=== PATIENT | male | born 1945 | race Caucasian/White ===

== ENCOUNTER → 2018-12-31 | Day surgery (SDC) | payer MEDICARE, BC ==
[2018-12-24 10:18] LABS: BASOPHILS % 0.5 % (0.0-1.0); EOSINOPHILS # (AUTO) 0.2 (0.0-0.4); HEMATOCRIT 38.6 % (38.2-49.6); HEMOGLOBIN 12.5 g/dL (14.0-18.0); LYMPHOCYTES # (AUTO) 0.6 (1.0-3.2); LYMPHOCYTES % 14.9 % (18.0-39.1); MEAN CORPUSCULAR HEMOGLOBIN 31.9 pg (28-32); MEAN CORPUSCULAR HGB CONC 32.4 g/dL (31-35); MEAN CORPUSCULAR VOLUME 98.5 fL (81-99); MONOCYTES # (AUTO) 0.5 (0.2-0.8); MONOCYTES % 11.6 % (4.4-11.3); NEUTROPHILS # (AUTO) 2.8 (2.1-6.9); NEUTROPHILS % 68.5 % (38.7-80.0); PLATELET COUNT 118 x10e3/uL (140-360); RED BLOOD COUNT 3.92 x10e6/uL (4.3-5.7); RED CELL DISTRIBUTION WIDTH 13.8 % (11.7-14.4)
--- NOTE | 2018-12-24 11:05 | Diagnostic Imaging Report ---
EXAMINATION: CHEST 2 VIEWS INDICATION: Pre-operative COMPARISON: None FINDINGS: LINES/TUBES:None LUNGS:The lungs are well-inflated. No focal consolidation or pulmonary edema. PLEURA:No pleural effusion or pneumothorax. MEDIASTINUM:The cardiomediastinal silhouette appears normal in size and shape. BONES/SOFT TISSUES:No acute osseous injury. ABDOMEN:No free air under the diaphragm. IMPRESSION: No focal pneumonia or pulmonary edema. Signed by: Cinthya Murphy MD on 12/24/2018 11:02 AM
[~2018-12-31] MED LIST: ALIGN4 MG; AMLODIPINE BESYL5 MG PO; ASPIRIN81 MG; BYSTOLIC10 MG PO; CEFTRIAXONE SOD 1 GM/NS 50 ML 50 ML IV ONE; CENTRUM SILVER1 EAC4; CLOPIDOGREL75 MG PO; DICYCLOMINE HCL20 MG PO; EPHEDRINE SULFATE INJ 50 MG/10 ML SYR ONE; FENTANYL CITRATE/PF 100MCG/2 ML INJ ONE; HUMIRA20 MG/0.4; LEFLUNOMIDE; LIDOCAINE HCL 2% LOCAL INJ 5 ML SDV VIAL INJ ONE; LOSARTAN POTAS100 MG PO; OMEPRAZOLE40 MG; PROPOFOL IV EMULSION 10 MG/ML 20 ML VIAL ONE; SEVOFLURANE INHAL SOLN 250 ML PEN BTL ONE; VITAMIN C500 MG; VITAMIN D3400 UNIT
--- OUTSIDE RECORDS SUMMARY | 2018-12-31 05:15 | XMS REPORT ---
Author Author [facility] Address Unknown Phone Unavailable Care Team Providers Care [employer] Technical Assistant Name Role Phone NIMO SCANLON Unavailable Unavailable Payers Payer Name Policy Type Policy Number Effective Date Expiration Date Problems This patient has no known problems. Allergies, Adverse Reactions, Alerts Allergy Name Allergy Type Status Severity Reaction(s) Onset Date Inactive Date Treating Clinician Comments No Known Allergies DA Active U 2016-12-22 00:00:00 Medications This patient has no known medications. Results Test Description Test Time Test Comments Text Results Atomic Results Result Comments CHEST 2 VIEWS 2018-12-24 11:01:00 [place] [address] Patient Name: NORIS MAGALLANES MR #: [id number] : 1945 Age/Sex: 73/M Req #: [id number] Adm Physician: Ordered by: NIMO SCANLON MD Report #: [id number] Location: OR Room/Bed: Procedure: [id number] DX/CHEST 2 VIEWS Exam Date: Exam Time: REPORT STATUS: Signed EXAMINATION: CHEST 2 VIEWS INDICATION: Pre-operative COMPARISON: None FINDINGS: LINES/TUBES:None LUNGS:The lungs are well- inflated. No focal consolidation or pulmonary edema. PLEURA:No pleural effusion or pneumothorax. MEDIASTINUM:The cardiomediastinal silhouette appears normal in size and shape. BONES/SOFT TISSUES:No acute osseous injury. ABDOMEN:No free air under the diaphragm. IMPRESSION: No focal pneumonia or pulmonary edema. Signed by: Landon Mercer MD on 12/24/2018 11:02 AM Dictated By: LANDON MERCER MD 01 Transcribed By: LG on 12/24/181101 COPY TO: NIMO SCANLON MD CBC W/AUTO DIFF 2018-10-07 08:35:00 WHITE BLOOD CELL (test code=WBC) 5.79 x10 3/uL 4.5-11.0 RED BLOOD CELL (test code=RBC) 4.25 x10 6/uL 4.00-5.60 HEMOGLOBIN (test code=HGB) 13.4 g/dL 12.5-16.9 HEMATOCRIT (test code=HCT) 39.7 % 37.5-50.7 MEAN CELL VOLUME (test code=MCV) 93.4 fL 81.0-99.0 MEAN CELL HGB (test code=MCH) 31.5 pg 27.0-33.0 MEAN CELL HGB CONCETRATION (test code=MCHC) 33.8 g/dL 33.0-37.0 RED CELL DISTRIBUTION WIDTH CV (test code=RDW) 13.7 % 11.5-14.5 RED CELL DISTRIBUTION WIDTH SD (test code=RDW-SD) 46.9 fL 37.0-54.0 PLATELET COUNT (test code=PLT) 115 x10 3/uL 150-400 MEAN PLATELET VOLUME (test code=MPV) 11.3 fL 7.0-9.0 NEUTROPHIL % (test code=NT%) 80.8 % 56.0-77.0 IMMATURE GRANULOCYTE % (test code=IG%) 0.2 % 0.0-2.0 LYMPHOCYTE % (test code=LY%) 9.8 % 14.0-32.0 MONOCYTE % (test code=MO%) 8.5 % 4.8-9.0 EOSINOPHIL % (test code=EO%) 0.5 % 0.3-3.7 BASOPHIL % (test code=BA%) 0.2 % 0.0-2.0 NUCLEATED RBC % (test code=NRBC%) 0.0 % 0-0 NEUTROPHIL # (test code=NT#) 4.68 x10 3/uL 2.0-7.6 IMMATURE GRANULOCYTE # (test code=IG#) 0.01 x10 3/uL 0.00-0.03 LYMPHOCYTE # (test code=LY#) 0.57 x10 3/uL 1.0-3.8 MONOCYTE # (test code=MO#) 0.49 x10 3/uL 0.1-0.8 EOSINOPHIL # (test code=EO#) 0.03 x10 3/uL 0.0-0.2 BASOPHIL # (test code=BA#) 0.01 x10 3/uL 0.0-0.2 NUCLEATED RBC # (test code=NRBC#) 0.00 x10 3/uL 0.0-0.1 MANUAL DIFF REQUIRED (test code=MDIFF) NO BASIC METABOLIC [id number] 08:04:00* Test Item Value Reference Range Comments SODIUM (test code=NA) 142 mEq/L 134-147 POTASSIUM (test code=K) 3.5 mEq/L 3.4-5.0 CHLORIDE (test code=CL) 109 mEq/L 100-108 CARBON DIOXIDE (test code=CO2) 24 mEq/L 21-33 ANION GAP (test code=GAP) 13 0-20 GLUCOSE (test code=GLU) 128 mg/dL 70-110 BLOOD UREA NITROGEN (test code=BUN) 19 mg/dL 7-18 GLOMERULAR FILTRATION RATE (test code=GFR) 82.7 70-80 Units of measure=ml/min/1.73 m2 CREATININE (test code=CREAT) 0.9 mg/dL 0.6-1.3 CALCIUM (test code=CA) 8.8 mg/dL 8.0-10.5 SED RATE [id number] 08:28:00* Test Item Value Reference Range Comments SED RATE WESTERGREN (test code=SEDW) 4 mm/hr 0-15 LIPID PROFILE (CORONARY RISK)2018-10-06 08:20:00* Test Item Value Reference Range Comments TRIGLYCERIDES (test code=TRIG) 146 mg/dL 40-150 CHOLESTEROL (test code=CHOL) 174 mg/dL <200 CHOLESTEROL/HDL RATIO (test code=CHOLHDL) 3.78 RATIO 3.43-4.97 RISK ASSOCIATED WITH CHOL/HDL RATIOS: RISK MALE FEMALE1/2 AVERAGE 3.43 3.27AVERAGE 4.97 4.442X AVERAGE 9.55 7.053X AVERAGE 23.39 11.04 NOTE THAT THE REFERENCE VALUE IS RELATEDTO RISK LEVELS RECOMMENDED BY THE NATL.HEART, LUNG, AND BLOOD INST. HDL CHOLESTEROL (test code=HDL) 46.0 mg/dL 32-72 LIPOPROTEIN LDL (test code=LDL) 114 mg/dL 0-100 <100 [id number] NEAR OPTIMAL/ABOVE [id number] HIGH>BM=348 VERY HIGH*Guidelines provided by the National Cholesterol EducationProgram Adult Treatment Panel III T4 [id number] 08:20:00* Test Item Value Reference Range Comments T4 FREE (test code=T4F) 1.0 ng/dL 0.77-1.61 THYROID STIMULATING [id number] 08:20:00* Test Item Value Reference Range Comments THYROID STIMULATING HORMONE (test code=TSH) 1.90 0.42-5.47 Results in bg-International Units/mL [id number] 08:20:00* Test Item Value Reference Range Comments TROPONIN-I (test code=TROPI) < 0.015 ng/mL 0.000-0.045 Negative: <=0.045 Positive: >=0.046 Correlation with serial results, other cardiac markers andclinical findings is necessary to determine the clinicalsignificance of this result. Results using different methodologies should not be comparedto one another as quantitative results may vary by method. [id number] 01:13:00* Test Item Value Reference Range Comments TROPONIN-I (test code=TROPI) < 0.015 ng/mL 0.000-0.045 Negative: <=0.045 Positive: >=0.046 Correlation with serial results, other cardiac markers andclinical findings is necessary to determine the clinicalsignificance of this result. Results using different methodologies should not be comparedto one another as quantitative results may vary by method. COMMENTS: 3 troponins total (including troponin done in ED)- CT ANGIO CHEST 2018-10-05 21:28:00 Name: NORIS MAGALLANES [facility] [place] : 1945 Age/S: 73 / M [address] [place] [address] Unit #: [id number] Loc: [place] [address] Phys: Robby Luong MD Acct: [id number] Dis Date: Status: REG ER PHONE #: [phone] Exam Date: 10/05/20182105 FAX #: [phone] Reason: sharp ripping chest pain EXAMS: CPT CODE: [id number] CT ANGIO CHEST 22473 Clinical Indication: sharp ripping chest pain; Comparison: CTA chest April 13, 2018 TECHNIQUE: Multi-detector CTA imaging of the chest is performed. Coronal and sagittal as well as 3D Maximum Intensity Projected MIP reconstructions were obtained. 100 cc IV Isovue contrast used. CT DLP 420mg-cm. FINDINGS: CT: Three 4 mm nodule in the right middle lobe, left lower lobe lobe are visualized, unchanged since the last exam. There are no interstitial lung disease, pleural effusions or pneumothorax. The central airway is normal. There is no mediastinal lymphadenopathy. Thoracic osseous structures are unremarkable. The upper abdominal images demonstrate a small hiatal hernia and bilateral nonobstructive nephrolithiasis. CTA: The heart is within normal limits for size without pericardial effusion. A coronary stent is present. Pulmonary arteries are unremarkable without evidence for proximal segmental or larger pulmonary embolus. The thoracic aorta is within normal limits without aneurysm or dissection. The great vessels and superior vena cava are normal. IMPRESSION: 1. No evidence for pulmonary embolus 2. No acute CT findings. 3. Stable bilateral pulmonary nodules 4. A small hiatal hernia. 5. Bilateral nonobstructive nephrolithiasis. DONNY: DIANE PAGE 1 Signed Report (CONTINUED) Name: NORIS MAGALLANES [facility] [place] : 1945 Age/S: 73 / M [address] [place] [address] Unit #: [id number] Loc: [place] [address] Phys: Robby Luong MD Acct: [id number] Dis Date: Status: REG ER PHONE #: [phone] Exam Date: 10/05/20182105 FAX #: [phone] Reason: sharp ripping chest pain EXAMS: CPT CODE: [id number] CT ANGIO CHEST 85132 < Continued> at 8 Reported and signed by: You Gould M.D. CC: Robby Luong MD Technologist:Terri Willis, RT(R)(CT) CTDI: DLP: Trnscb Date/Time: 10/05/2018 (2127) t.SDR.LNV Orig Print D/T: S: 10/05/2018 (2130) PAGE 2 Signed Report PROTHROMBIN [id number] 20:10:00* Test Item Value Reference Range Comments PROTHROMBIN TIME PATIENT (test code=PTP) 11.8 SECONDS 9.3-12.9 INTERNATIONAL NORMAL RATIO (test code=INR) 1.0 0.8-1.2 TARGET INR BY INDICATION Indication INR1. Prophylaxis of venous thrombosis 2.0 - 3.0 (orthopedic surgery), Prophylaxis of venous thrombosis (other than high-risk surgery), Treatment of Deep Vein Thrombosis/Pulmonary Embolism, Prevention of systemic embolism - Tissue heart valves, Acute Myocardial Infarction (to prevent systemic embolism), Valvular heart disease, Atrial Fibrillation, Bileaflet mechanical valve in aortic position.2. Mechanical prosthetic valves (high risk), 2.5 - 3.5 Presence of Lupus Anticoagulant or Antiphospholipid Antibodies, Prevention of systemic embolism - Acute Myocardial Infarction (to prevent recurrent infarct). THROMBOPLASTIN TIME [id number] 20:10:00* Test Item Value Reference Range Comments THROMBOPLASTIN TIME PARTIAL (test code=PTT) 31.9 Seconds 25.0-39.5 Therapeutic Range: 50.4 - 88.3 Seconds Effective 06/11/2018 [id number] 20:10:00* Test Item Value Reference Range Comments D-DIMER (test code=DDIMER) 482 ng/mlFEU <=500 THROMBOSIS AND/OR PULMONARY EMBOLISM AND THE CLINICAL CUT- OFF VALUE FOR EXCLUSION (500 ng/mL FEU) OF THESE CONDITIONSIS VALIDATED BY THE MULTI CRAFT MAINTENANCE TECHNICIAN OF THE METHOD. A NEGATIVE D-DIMER RESULT WHEN COMBINED WITH A CLINICALASSESSMENT OF LOW PRETEST PROBABILITY HAS BEEN SHOWN TO HAVEA HIGH NEGATIVE PREDICTIVE VALUE OF DVT OR PE. D-DIMER VALUES >500 ng/mL FEU ARE NOT DIAGNOSTIC FOR DVT, PEor DIC WITHOUT OTHER CONFIRMATORY TESTS AND APPROPRIATECLINICAL EUALUATIONS. COMPREHENSIVE METABOLIC [id number] 20:09:00* Test Item Value Reference Range Comments SODIUM (test code=NA) 146 mEq/L 134-147 POTASSIUM (test code=K) 3.7 mEq/L 3.4-5.0 CHLORIDE (test code=CL) 114 mEq/L 100-108 CARBON DIOXIDE (test code=CO2) 24 mEq/L 21-33 ANION GAP (test code=GAP) 12 0-20 GLUCOSE (test code=GLU) 98 mg/dL 70-110 BLOOD UREA NITROGEN (test code=BUN) 22 mg/dL 7-18 GLOMERULAR FILTRATION RATE (test code=GFR) 65.6 70-80 Units of measure=ml/min/1.73 m2 CREATININE (test code=CREAT) 1.1 mg/dL 0.6-1.3 TOTAL PROTEIN (test code=PROT) 6.5 g/dL 6.4-8.2 ALBUMIN (test code=ALB) 3.70 g/dL 3.4-5.0 CALCIUM (test code=CA) 9.0 mg/dL 8.0-10.5 BILIRUBIN TOTAL (test code=BILT) 0.60 mg/dL 0.0-1.0 SGOT/AST (test code=AST) 22 IUnit/L 15-37 SGPT/ALT (test code=ALT) 21 IUnit/L 15-65 ALKALINE PHOSPHATASE TOTAL (test code=ALKP) 67 IUnit/L 20-125 COMPREHENSIVE METABOLIC [id number] 20:06:00* Test Item Value Reference Range Comments SODIUM (test code=NA) 146 mEq/L 134-147 POTASSIUM (test code=K) 3.7 mEq/L 3.4-5.0 CHLORIDE (test code=CL) 114 mEq/L 100-108 CARBON DIOXIDE (test code=CO2) 24 mEq/L 21-33 ANION GAP (test code=GAP) 12 0-20 GLUCOSE (test code=GLU) 98 mg/dL 70-110 BLOOD UREA NITROGEN (test code=BUN) 22 mg/dL 7-18 GLOMERULAR FILTRATION RATE (test code=GFR) 65.6 70-80 Units of measure=ml/min/1.73 m2 CREATININE (test code=CREAT) 1.1 mg/dL 0.6-1.3 TOTAL PROTEIN (test code=PROT) g/dL 6.4-8.2 ALBUMIN (test code=ALB) 3.70 g/dL 3.4-5.0 CALCIUM (test code=CA) 9.0 mg/dL 8.0-10.5 BILIRUBIN TOTAL (test code=BILT) mg/dL 0.0-1.0 SGOT/AST (test code=AST) 22 IUnit/L 15-37 SGPT/ALT (test code=ALT) 21 IUnit/L 15-65 ALKALINE PHOSPHATASE TOTAL (test code=ALKP) IUnit/L 20-125 TROPONIN-I [id number] 19:54:00* Test Item Value Reference Range Comments TROPONIN-I RAPID (test code=TROPIRAP) 0.01 ng/mL 0.00-0.08 Performed by certified shovel loader operator at [facility] Negative: <=0.08 Positive: >=0.09An elevated troponin value alone is not sufficient todiagnose a myocardial infarction. Rather, the patient sclinical presentation (history, physical exam) and ECGshould be used in conjunction with troponin in thediagnostic evaluation of suspected myocardial infarction. Aserial sampling protocol is recommended to facilitate the identification of temporal changes in troponin levels characteristic of MT. CBC W/AUTO [id number] 19:52:00* Test Item Value Reference Range Comments WHITE BLOOD CELL (test code=WBC) 3.77 x10 3/uL 4.5-11.0 RED BLOOD CELL (test code=RBC) 4.03 x10 6/uL 4.00-5.60 HEMOGLOBIN (test code=HGB) 12.8 g/dL 12.5-16.9 HEMATOCRIT (test code=HCT) 38.6 % 37.5-50.7 MEAN CELL VOLUME (test code=MCV) 95.8 fL 81.0-99.0 MEAN CELL HGB (test code=MCH) 31.8 pg 27.0-33.0 MEAN CELL HGB CONCETRATION (test code=MCHC) 33.2 g/dL 33.0-37.0 RED CELL DISTRIBUTION WIDTH CV (test code=RDW) 14.0 % 11.5-14.5 RED CELL DISTRIBUTION WIDTH SD (test code=RDW-SD) 49.1 fL 37.0-54.0 PLATELET COUNT (test code=PLT) 121 x10 3/uL 150-400 MEAN PLATELET VOLUME (test code=MPV) 11.2 fL 7.0-9.0 NEUTROPHIL % (test code=NT%) 65.5 % 56.0-77.0 IMMATURE GRANULOCYTE % (test code=IG%) 0.0 % 0.0-2.0 LYMPHOCYTE % (test code=LY%) 18.3 % 14.0-32.0 MONOCYTE % (test code=MO%) 12.5 % 4.8-9.0 EOSINOPHIL % (test code=EO%) 3.4 % 0.3-3.7 BASOPHIL % (test code=BA%) 0.3 % 0.0-2.0 NUCLEATED RBC % (test code=NRBC%) 0.0 % 0-0 NEUTROPHIL # (test code=NT#) 2.47 x10 3/uL 2.0-7.6 IMMATURE GRANULOCYTE # (test code=IG#) 0.00 x10 3/uL 0.00-0.03 LYMPHOCYTE # (test code=LY#) 0.69 x10 3/uL 1.0-3.8 MONOCYTE # (test code=MO#) 0.47 x10 3/uL 0.1-0.8 EOSINOPHIL # (test code=EO#) 0.13 x10 3/uL 0.0-0.2 BASOPHIL # (test code=BA#) 0.01 x10 3/uL 0.0-0.2 NUCLEATED RBC # (test code=NRBC#) 0.00 x10 3/uL 0.0-0.1 MANUAL DIFF REQUIRED (test code=MDIFF) NO - XR CHEST 1 [id number] 19:51:00 FAX: Robby Barnes MD [phone] [place]: EDY St: REG Name: NORIS SILVA [facility] : [birth year] Age/S: 73/M [address] [place] [address] Unit #: [id number] Loc: [place] [address] Phys: Robby Luong MD Acct: [id number] Dis Date: Status: REG ER PHONE #: [phone] Exam Date: 10/05/20181944 FAX #: [phone] Reason: Chest Pain EXAMS: CPT CODE: [id number] XR CHEST 1 V 07441 CHEST, ONE VIEW: H ISTORY: Acute chest pain. COMPARISON EXAM(S): April 2018 FINDINGS: This single portable view was obtained at 1916 hours on and shows upper normal cardiac silhouette without acute infiltrat es or effusions. No significant change. The skeletal structures ar e unremarkable. IMPRESSION: 1. Negativ e examination of the chest. 2. No change compared to April 2018. SL:01 Kamla ctronically Signed by Lei Sullivan on at 1950 Reported and signed by: Katerin Sullivan M.D. CC: Robby Luong MD Technologist: ALIX Escalera RT(R); Cintia Harden RT(R) Trnscrd Date/Time/By: 10/05/2018 (1950) : By: MaryAJJ PAGE 1 Signed Report - MRI BRAIN WO/W [id number] 14:49:00 FAX: Mitchell Valdez MD [phone] [place]: St: ADM Name: NORIS SILVA [facility] [place] : [birth year] Age/S: 72/M [address] [place] [address] Blvd Unit #: [id number] Loc: [place] [address] Phys: Mitchell Sal MD Acct: [id number] Dis Date: Status: ADM IN PHONE #: [phone] Exam Date: 05/17/2018 1332 FAX #: [phone] Reason: transient global amnesia EXAMS: CPT CODE: [id number] MRI BRAIN WO/W CONT 84473 Study: - MRI BRAIN WO/W CONT 05/17 6:39 AM Patient Name: NORIS MAGALLANES MR: [id number] : 1945; Age: 72 years y/o Male Ordering Physician: Mitchell Sal MD Clinical Indication: transient global amnesia C omparison: CT head, May 16, 2018 TECHNIQUE: TECHNIQUE: Multiplan ar precontrast and postcontrast MRI of the brain was performed on a 1.5 Te sl[place] magnet. Contrast: Dotarem 19 mL FINDINGS: BRAIN PARENCHYMA: General: The brain volume and ventricle size are appropriate for age. Scattered FLAIR hyperintensities in the sup ratentorial white matter likely represent chronic small vessel ischemic ch anges. Ventricles: Normal size and appearance. Cavum septa pellu rosemary and cavum vergae noted. Enhancement: No abnormal enhanc ement. Acute Findings: No evidence of acute intracranial hemorrhag e, mass, mass effect, midline shift, or extra-axial fluid collection. Diffusion Weighted Images: No evidence of restricted diffusion to suggest acute or subacute ischemia. Gradient Images: No abnormal hypointense signal to suggest old hemorrhage. Midline Struc tures: The pituitary gland, corpus callosum, and remaining midline structu res are normal. VASCULATURE: Arterial: The major intra cranial arterial flow voids are present. Venous: The dural venous sinus fl ow voids are grossly normal. PAGE 1 Signed Re port (CONTINUED) FAX: Mitchell Valdez MD [place]: St: ADM Name: NORIS MAGALLANES [facility] [place] and[place] : 1945 Age/S: 72/M [address] [place] [address] Unit #: [id number] Loc: [place] [address] Phys: Mitchell Sal MD Acct: [id number] Dis Date: Status: ADM IN PHONE #: [phone] Exam Date: 05/17/2018 1332 FAX #: [phone] Reason: transient global amnesia EXAMS: CPT CODE: [id number] MRI BRAIN WO/W CONT 76672 < Continued> PARANASAL SINUSES: Complete filling of the right maxillary sinus and partial opacification of the sphenoid and ethmoid sinuses. MASTOIDS: Clear. SOFT TISSUES AND ORBITS: The visualized portions are normal. IMPRESSION: 2. 1. No acute stroke, hemorrhage, mass, or mass effect. 3. 2. Mild chronic small vessel ischemic changes in the supratentorial white matter. 4. 3. Moderate paranasal sinus [id number] at 9101 Reported and signed by: Maximino Boland M.D. CC: Mitchell Sal MD Technologist: Trevor Hines RT(R)(CT)(MR) Trnscrd Date/Time/By: 05/17/2018 (4623) : By: [email or web address] Orig Print D/T: S: 05/17/2018 (1509) PAGE 2 Signed Report [id number] 09:22:00* Test Item Value Reference Range Comments TROPONIN-I (test code=TROPI) < 0.015 ng/mL 0.000-0.045 Negative: <=0.045 Positive: >=0.046 Correlation with serial results, other cardiac markers andclinical findings is necessary to determine the clinicalsignificance of this result. Results using different methodologies should not be comparedto one another as quantitative results may vary by method. COMMENTS: 3 troponins total (including troponin done in ED)TROPONIN-I RAPID 2018-05-17 09:22:00* Test Item Value Reference Range Comments TROPONIN-I RAPID (test code=TROPIRAP) 0.00 ng/mL 0.00-0.08 [facility] by certified shovel loader [facility] Global Task Force with joint leadership from the EuropeanSociety of Cardiology (ESC), the [place] College [employer] Cardiology Foundation (ACCF), the [place] Heart Association(AHA) and the World Heart Federation (WHF) refined past criteria of myocardial infarction (MT) with a universal definition of myocardial infarction that supports the use of cTnI as a preferred biomarker for myocardial injury. The universal definition of MT, according to this taskforce, is defined as a typical rise and gradual fall ofcardiac biomarkers (preferably troponin) with at least onevalue above the 99th percentile of the upper reference limit (URL) together with evidence of myocardial ischemia with at least one of the following:* ischemic symptoms,* pathological Q waves on electrocardiogram (ECG),* ischemic ECG changes,* or imaging evidence of new loss of viable myocardium or new regional wall motion abnormality. An elevated troponin value alone is not sufficient todiagnose a myocardial infarction. Rather, the patient sclinical presentation (history, physical exam) and ECGshould be used in conjunction with troponin in thediagnostic evaluation of suspected myocardial infarction. Aserial sampling protocol is recommended to facilitate the identification of temporal changes in troponin levels characteristic of MT. [id number] 06:45:00* Test Item Value Reference Range Comments GLUBED (test code=GLUBED) 116 MG/DL 70-110 Performed by certified shovel loader operator at [facility] [id number] 06:16:00* Test Item Value Reference Range Comments TROPONIN-I (test code=TROPI) < 0.015 ng/mL 0.000-0.045 Negative: <=0.045 Positive: >=0.046 Correlation with serial results, other cardiac markers andclinical findings is necessary to determine the clinicalsignificance of this result. Results using different methodologies should not be comparedto one another as quantitative results may vary by method. COMMENTS: 3 troponins total (including troponin done in ED)[id number] 06:09:00* Test Item Value Reference Range Comments AMMONIA (test code=AMM) 19 umol/L 0-35 TROPONIN-I [id number] 03:38:00* Test Item Value Reference Range Comments TROPONIN-I RAPID (test code=TROPIRAP) 0.00 ng/mL 0.00-0.08 Performed by certified shovel loader operator [facility] Global Task Force with joint leadership from the EuropeanSociety of Cardiology (ESC), the [place] [employer] Foundation (ACCF), the [place] Heart Association(AHA) and the World Heart Federation (WHF) refined past criteria of myocardial infarction (MT) with a universal definition of myocardial infarction that supports the use of cTnI as a preferred biomarker for myocardial injury. The universal definition of MT, according to this taskforce, is defined as a typical rise and gradual fall ofcardiac biomarkers (preferably troponin) with at least onevalue above the 99th percentile of the upper reference limit (URL) together with evidence of myocardial ischemia with at least one of the following:* ischemic symptoms,* pathological Q waves on electrocardiogram (ECG),* ischemic ECG changes,* or imaging evidence of new loss of viable myocardium or new regional wall motion abnormality. An elevated troponin value alone is not sufficient todiagnose a myocardial infarction. Rather, the patient sclinical presentation (history, physical exam) and ECGshould be used in conjunction with troponin in thediagnostic evaluation of suspected myocardial infarction. Aserial sampling protocol is recommended to facilitate the identification of temporal changes in troponin levels characteristic of MT. URINALYSIS [id number] 03:38:00* Test Item Value Reference Range Comments UA COLOR (test code=COLU) YELLOW YEL/STRAW UA APPEARANCE (test code=APPU) CLEAR CLEAR UA GLUCOSE DIPSTICK (test code=DGLUU) NEGATIVE NEGATIVE UA BILIRUBIN DIPSTICK (test code=BILU) NEGATIVE NEGATIVE UA KETONE DIPSTICK (test code=KETU) 1+ NEGATIVE UA SPECIFIC GRAVITY (test code=SGU) 1.018 1.005-1.030 UA BLOOD DIPSTICK (test code=LAWRENCE) NEGATIVE NEGATIVE UA PH DIPSTICK (test code=ARIADNE) 6.0 5.0-7.0 UA PROTEIN DIPSTICK (test code=PROU) NEGATIVE NEGATIVE UA UROBILINIOGEN DIPSTICK (test code=URO) 0.2 mg/dL 0.2-1.0 UA NITRITE DIPSTICK (test code=BENNY) NEGATIVE NEGATIVE UA LEUKOCYTE ESTERASE DIPSTICK (test code=LEUU) NEGATIVE NEGATIVE UA WBC (test code=WBCU) 0-3 WBC/HPF 0-3 UA RBC (test code=RBCU) 0-3 RBC/HPF 0-3 UA BACTERIA (test code=BACU) NONE SEEN /HPF NONE SEEN UA SQUAMOUS CELLS (test code=SQU) 0-5 /HPF NONE SEEN UA CALCIUM OXALATE CRYSTALS (test code=CAOXU) 1+ /HPF NONE SEEN UA MUCUS (test code=MUCU) TRACE /LPF NONE SEEN - XR CHEST 1 [id number] 21:36:00 FAX: Antonino Camargo DO [phone] [place]: St: REG Name: NORIS SILVA [facility] : [birth year] Age/S: 72/M [address] [place] [address] Blvd Unit #: [id number] Loc: [place] [address] Phys: Antonino Pelletier DO Acct: [id number] Dis Date: Status: REG ER PHONE #: [phone] Exam Date: 05/16/20182121 FAX #: [phone] Reason: CONFUSION EXAMS: CPT CODE: [id number] XR CHEST 1 V 07521 Single portable AP chest INDICATION: Shortness of breath today. Confusion. COMPARISON: 04/13/2018 chest radiograph FINDINGS: The cardiomediastinal silho uette is normal in size. Descending aorta is mildly tortuous. Lungs are well inflated and clear. Costophrenic angles are sharp. No acute bony fi nding. IMPRESSION: No evidence for acute cardiopulmonary disease . SL: ALONZOH Electronically Sign ed by Lei García on 05/16/2018 at 1640 Reported and signed by: Francisco Javier García M.D. CC: Antonino Pelletier DO Technologist: Pearl Trevizo RT(R)(M); Frantz Garg RT(R) Davon Da te/Time/By: 05/16/2018 (2135) : By: [email or web address] Orig Print D/T: S: 05/16 (2138) PAGE 1 Signed Report HEPATIC FUNCTION [id number] 21:17:00* Test Item Value Reference Range Comments TOTAL PROTEIN (test code=PROT) 7.1 g/dL 6.4-8.2 ALBUMIN (test code=ALB) 3.60 g/dL 3.4-5.0 BILIRUBIN TOTAL (test code=BILT) 0.60 mg/dL 0.0-1.0 BILIRUBIN DIRECT (test code=BILD) 0.10 MG/DL 0.0-0.30 BILIRUBIN INDIRECT (test code=BILIND) 0.50 MG/DL SGOT/AST (test code=AST) 25 IUnit/L 15-37 SGPT/ALT (test code=ALT) 22 IUnit/L 15-65 ALKALINE PHOSPHATASE TOTAL (test code=ALKP) 97 IUnit/L 20-125 [id number] 21:17:00* Test Item Value Reference Range Comments ALCOHOL (test code=ALC) < 0.003 G/dL <0.003 Ethyl Alcohol Interpretation: 0.100 gm/dL - Legally Intoxicated 0.300-0.400 gm/dL - Severely Intoxicated >0.400 gm/dL - Potentially LethalResults are for Medical purposes only, and not for Legal orEmployment evaluation purposes. PROTHROMBIN [id number] 21:08:00* Test Item Value Reference Range Comments PROTHROMBIN TIME PATIENT (test code=PTP) 12.9 SECONDS 9.3-12.9 INTERNATIONAL NORMAL RATIO (test code=INR) 1.1 0.8-1.2 TARGET INR BY INDICATION Indication INR1. Prophylaxis of venous thrombosis 2.0 - 3.0 (orthopedic surgery), Prophylaxis of venous thrombosis (other than high-risk surgery), Treatment of Deep Vein Thrombosis/Pulmonary Embolism, Prevention of systemic embolism - Tissue heart valves, Acute Myocardial Infarction (to prevent systemic embolism), Valvular heart disease, Atrial Fibrillation, Bileaflet mechanical valve in aortic position.2. Mechanical prosthetic valves (high risk), 2.5 - 3.5 Presence of Lupus Anticoagulant or Antiphospholipid Antibodies, Prevention of systemic embolism - Acute Myocardial Infarction (to prevent recurrent infarct). THROMBOPLASTIN TIME [id number] 21:08:00* Test Item Value Reference Range Comments THROMBOPLASTIN TIME PARTIAL (test code=PTT) 34.8 Seconds 25.0-39.5 Therapeutic Range: 61.8-83.8 Sec Effective 03/26/2013 - CT HEAD/BRAIN W/O [id number] 21:06:00 Name: NORIS MAGALLANES [facility] : 1945 Age/S: 72 / M [address] [place] [address] Blvd Unit #: [id number] Loc: [place] [address] Phys: Antonino Pelletier DO Acct: [id number] Dis Date: Status: REG ER PHONE #: [phone] Exam Date: 05/16/20182050 FAX #: [phone] Reason: AMS EXAMS: CPT CODE: [id number] CT HEAD/BRAIN W/O CONT 02062 Clinical Indication: AMS; Comparison: None TECHNIQUE: CT images were obtained from the foramen magnum to the vertex without the use of intravenous contrast on a multidetector CT. Coronal and sagittal reconstructions were obtained. CT radiation dose DLP: 472 mGy-cm FINDINGS: BRAIN PARENCHYMA: There are normal chino-white interfaces, sulci and gyri. There are no focal mass lesions on this noncontrast head CT. There is no mass effect, midline shift or edema. There are no intra-axial or extra-axial fluid collections, intraventricular or intraparenchymal hemorrhage. The pineal, sellar, brainstem, cerebellum and skull base regions appear unremarkable. VENTRICLES: The lateral ventricles, third and fourth ventricles appear unremarkable. The basilar cisterns are normal. Cavum septum pellucidum is present. ORBITS, MASTOIDS AND PARANASAL SINUSES: The right maxillary sinus is completely opacified. The ethmoid air cells and sphenoid sinuses are partially opacified. The visualized orbits and remaining paranasal sinuses are unremarkable. The mastoid air cells are c lear. SKULL: There are no osseous abnormalities. If there is further concern for intracranial pathology or acute stroke, MRI of the brain may be performed for complete assessment. IMPRESSIO N: 1. Unremarkable noncontrast head CT with no mass, hemorrhage or subacute stroke. 2. Sinus disease affecting the right maxillary sinu s, sphenoid sinuses and ethmoid air cells. SL: [id number] PAGE 1 Signed Report (CONTINUED) Name: NOIRS MAGALLANES [facility] [place] : 1945 Age/S: 72 / M [address] [place] [address] Bl Unit #: [id number] Loc: [place] [address] Phys: Antonino Pelletier DO Acct: [id number] Dis Date: Status: R EG ER PHONE #: [phone] Exam Date: 04/27 FAX #: [phone] Reason: AMS EXAMS: CPT CODE: [id number] CT HEAD/BRAIN W/O CONT 449 <Continued> at 2105 Reported and signed by: You Gould M.D. CC: Antonino Pelletier DO Technologist:Sheila Camarena RT(R) CTDI: DLP: Trnscb Date/Time: 05/16/2018 (2105) [email or web address] Orig Print D/T: S: 05/16/2018 (2108) CTDI: DLP: PAGE 2 Signed Report CBC W/O DIFF 2018-05-16 20:57:00* Test Item Value Reference Range Comments WHITE BLOOD CELL (test code=WBC) 4.69 x10 3/uL 4.5-11.0 RED BLOOD CELL (test code=RBC) 4.47 x10 6/uL 4.00-5.60 HEMOGLOBIN (test code=HGB) 13.6 g/dL 12.5-16.9 HEMATOCRIT (test code=HCT) 42.3 % 37.5-50.7 MEAN CELL VOLUME (test code=MCV) 94.6 fL 81.0-99.0 MEAN CELL HGB (test code=MCH) 30.4 pg 27.0-33.0 MEAN CELL HGB CONCETRATION (test code=MCHC) 32.2 g/dL 33.0-37.0 RED CELL DISTRIBUTION WIDTH CV (test code=RDW) 14.1 % 11.5-14.5 RED CELL DISTRIBUTION WIDTH SD (test code=RDW-SD) 49.4 fL 37.0-54.0 PLATELET COUNT (test code=PLT) 203 x10 3/uL 150-400 MEAN PLATELET VOLUME (test code=MPV) 10.2 fL 7.0-9.0 CHEMISTRY 8 [id number] 20:54:00* Test Item Value Reference Range Comments ISTAT-SODIUM (test code=NAP) MMOL/L 134-147 ISTAT-POTASSIUM (test code=KP) MMOL/L 3.4-5.0 ISTAT-CHLORIDE (test code=CLP) MMOL/L 100-108 ISTAT CARBON DIOXIDE (test code=ISTAT-CO2) mmol/L 21-33 ISTAT CALCIUM IONIZED (test code=ISTAT-WILBUR) MG/DL 1.12-1.32 ISTAT-GLUCOSE (test code=GLUP) MG/DL 70-110 ISTAT-BUN (test code=BUNP) MG/DL 7-18 BEDSIDE CREATININE (test code=CREATBED) MG/DL 0.6-1.3 GLOMERULAR FILTRATION RATE POC (test code=GFRBED) 88 ML/MIN CHEMISTRY 8 [id number] 20:54:00* Test Item Value Reference Range Comments ISTAT-SODIUM (test code=NAP) 141 MMOL/L 134-147 ISTAT-POTASSIUM (test code=KP) 4.0 MMOL/L 3.4-5.0 ISTAT-CHLORIDE (test code=CLP) 105 MMOL/L 100-108 Performed by certified shovel loader operator at [facility] ISTAT CARBON DIOXIDE (test code=ISTAT-CO2) 27.0 mmol/L 21-33 ISTAT CALCIUM IONIZED (test code=ISTAT-WILBUR) 0.98 MG/DL 1.12-1.32 ISTAT-GLUCOSE (test code=GLUP) 113 MG/DL 70-110 ISTAT-BUN (test code=BUNP) 16 MG/DL 7-18 BEDSIDE CREATININE (test code=CREATBED) 0.9 MG/DL 0.6-1.3 GLOMERULAR FILTRATION RATE POC (test code=GFRBED) 88 ML/MIN BASIC METABOLIC [id number] 07:19:00* Test Item Value Reference Range Comments SODIUM (test code=NA) 142 mEq/L 134-147 POTASSIUM (test code=K) 3.3 mEq/L 3.4-5.0 CHLORIDE (test code=CL) 107 mEq/L 100-108 CARBON DIOXIDE (test code=CO2) 27 mEq/L 21-33 ANION GAP (test code=GAP) 11 0-20 GLUCOSE (test code=GLU) 98 mg/dL 70-110 BLOOD UREA NITROGEN (test code=BUN) 11 mg/dL 7-18 GLOMERULAR FILTRATION RATE (test code=GFR) 110.9 70-80 Units of measure=ml/min/1.73 m2 CREATININE (test code=CREAT) 0.7 mg/dL 0.6-1.3 CALCIUM (test code=CA) 8.8 mg/dL 8.0-10.5 CBC W/AUTO [id number] 07:12:00* Test Item Value Reference Range Comments WHITE BLOOD CELL (test code=WBC) 5.76 x10 3/uL 4.5-11.0 RED BLOOD CELL (test code=RBC) 4.23 x10 6/uL 4.00-5.60 HEMOGLOBIN (test code=HGB) 13.0 g/dL 12.5-16.9 HEMATOCRIT (test code=HCT) 40.2 % 37.5-50.7 MEAN CELL VOLUME (test code=MCV) 95.0 fL 81.0-99.0 MEAN CELL HGB (test code=MCH) 30.7 pg 27.0-33.0 MEAN CELL HGB CONCETRATION (test code=MCHC) 32.3 g/dL 33.0-37.0 RED CELL DISTRIBUTION WIDTH CV (test code=RDW) 14.6 % 11.5-14.5 RED CELL DISTRIBUTION WIDTH SD (test code=RDW-SD) 50.7 fL 37.0-54.0 PLATELET COUNT (test code=PLT) 140 x10 3/uL 150-400 MEAN PLATELET VOLUME (test code=MPV) 11.5 fL 7.0-9.0 NEUTROPHIL % (test code=NT%) 68.2 % 56.0-77.0 IMMATURE GRANULOCYTE % (test code=IG%) 0.2 % 0.0-2.0 LYMPHOCYTE % (test code=LY%) 12.3 % 14.0-32.0 MONOCYTE % (test code=MO%) 12.5 % 4.8-9.0 EOSINOPHIL % (test code=EO%) 6.3 % 0.3-3.7 BASOPHIL % (test code=BA%) 0.5 % 0.0-2.0 NUCLEATED RBC % (test code=NRBC%) 0.0 % 0-0 NEUTROPHIL # (test code=NT#) 3.93 x10 3/uL 2.0-7.6 IMMATURE GRANULOCYTE # (test code=IG#) 0.01 x10 3/uL 0.00-0.03 LYMPHOCYTE # (test code=LY#) 0.71 x10 3/uL 1.0-3.8 MONOCYTE # (test code=MO#) 0.72 x10 3/uL 0.1-0.8 EOSINOPHIL # (test code=EO#) 0.36 x10 3/uL 0.0-0.2 BASOPHIL # (test code=BA#) 0.03 x10 3/uL 0.0-0.2 NUCLEATED RBC # (test code=NRBC#) 0.00 x10 3/uL 0.0-0.1 MANUAL DIFF REQUIRED (test code=MDIFF) NO [id number] 18:54:00* Test Item Value Reference Range Comments TROPONIN-I (test code=TROPI) < 0.015 ng/mL 0.000-0.045 Negative: <=0.045 Positive: >=0.046 Correlation with serial results, other cardiac markers andclinical findings is necessary to determine the clinicalsignificance of this result. Results using different methodologies should not be comparedto one another as quantitative results may vary by method. COMMENTS: 3 troponins total (including troponin done in ED)[id number] 16:00:00* Test Item Value Reference Range Comments TROPONIN-I (test code=TROPI) < 0.015 ng/mL 0.000-0.045 Negative: <=0.045 Positive: >=0.046 Correlation with serial results, other cardiac markers andclinical findings is necessary to determine the clinicalsignificance of this result. Results using different methodologies should not be comparedto one another as quantitative results may vary by method. COMMENTS: 3 troponins total (including troponin done in ED)- CT ANGIO CHEST 2018-04-13 13:24:00 Name: ELPIDIONORIS JACKSON [facility] : 1945 Age/S: 72 / M [address] [place], [place] [address]vd Unit #: [id number] Loc: [place] [address] Phys: Migel Avina MD Acct: [id number] Dis Date: Status: REG ER PHONE #: [phone] Exam Date: 04/13/2018 1301 FAX #: [phone] Reason: elevated ddimer r/o PE EXAMS: CPT CODE: [id number] CT ANGIO CHEST 31418 PROCEDURE: CTA CHEST INDICATION: Chest pain, elevated d-dimer COMPARISON: None. TECHNIQUE: CTA of the pulmonary arteries was performed with 100 ml Isovue 300 intravenous contrast. Multiplanar and 3-D MIP angiographic reconstructions are reviewed. CT imaging performed at this location utilizes radiation dose optimization techniques which include one or more of the following: -Automated exposure control -Adjustment of the mA and/or kV according to patient size - Use of iterative reconstruction technique CT Radiation Dose DLP 430 mGy-cm FINDINGS: PULMONARY ARTERIES: Normal enhancement without intraluminal filling defect. MEDIASTINUM: The mediastinal contents are unremarkable. No adenopathy. HEART: The cardiac chambers are unremarkable. No pericardial effusion. LAD coronary artery stent noted. VASCULAR STRUCTURES: The thoracic aorta and great vessels are unremarkable. The superior vena cava is unremarkable. LUNGS: There is no acute lung infiltrate. Dependent subsegmental atelectasis is present at the lung bases. 3 mm left lung apex subpleural nodule is seen on sequence 4 image 33. 4 mm subpleural nodule in the right middle lobe as seen on sequence 4 image 140. 4 mm subpleural nodule seen in the lateral left lung base on sequence 4 image 141 UPPER ABDOMEN: Images the upper abdomen show innumerable nonobstructing bilateral upper pole renal stones, and a 3.4 cm left upper pole renal cyst. MUSCULOSKELETAL: No acute abnormality. IMPRESSION: 1. No CT evidence for pulmonary embolism. PAGE 1 Signed Report (CONTINUED) Name: NORIS MAGALLANES [facility] [place] : 1945 Age/S: 72 / M [address] [place] [address] Unit #: [id number] Loc: [place] [address] Phys: Migel Avina MD Acct: [id number] Dis Date: Status: REG ER PHONE #: [phone] Exam Date: 04/13/2018 1308 FAX #: [phone] Reason: elevated ddimer r/o PE EXAMS: CPT CODE: [id number] ANGIO CHEST [address] <Continued> 2. LAD coronary artery stent noted. 3. 3 separate 3 to 4 mm subpleural nodules in both lungs as described, for which additional foll ow-up is recommended. If the patient has a history of smoking or other r isk factor to increase their risk of malignancy, then a follow-up chest CT in 6 months is recommended. If the patient has no such risk factors, then a follow-up chest CT in 12 months is recommended. 4. Multi ple bilateral nonobstructing renal stones, left upper pole renal cyst. SL: [id number] Elect ronically Signed by Lei Jarvis on 2018 at 1324 Reported and signed by: Melissa Jarvis M.D. CC: Migel Avina MD Technologist:Brad Bowers, RT(R) CTDI: D LP: Trnscb Date/Time: 04/13/2018 (1324) t.[email or web address] Orig Print D/T: S: 04/13/2018 (5024) CTDI: DLP: PAGE 2 Signed Report B-TYPE NATRIURETIC [id number] 11:57:00* Test Item Value Reference Range Comments B-TYPE NATRIURETIC PEPTIDE (test code=BNP) 100.7 PG/ML 0-100 BASIC METABOLIC [id number] 11:39:00* Test Item Value Reference Range Comments SODIUM (test code=NA) 141 mEq/L 134-147 POTASSIUM (test code=K) 3.6 mEq/L 3.4-5.0 CHLORIDE (test code=CL) 108 mEq/L 100-108 CARBON DIOXIDE (test code=CO2) 26 mEq/L 21-33 ANION GAP (test code=GAP) 11 0-20 GLUCOSE (test code=GLU) 123 mg/dL 70-110 BLOOD UREA NITROGEN (test code=BUN) 15 mg/dL 7-18 GLOMERULAR FILTRATION RATE (test code=GFR) 95.0 70-80 Units of measure=ml/min/1.73 m2 CREATININE (test code=CREAT) 0.8 mg/dL 0.6-1.3 CALCIUM (test code=CA) 8.6 mg/dL 8.0-10.5 HEPATIC FUNCTION [id number] 11:39:00* Test Item Value Reference Range Comments TOTAL PROTEIN (test code=PROT) 6.7 g/dL 6.4-8.2 ALBUMIN (test code=ALB) 3.70 g/dL 3.4-5.0 BILIRUBIN TOTAL (test code=BILT) 0.70 mg/dL 0.0-1.0 BILIRUBIN DIRECT (test code=BILD) 0.20 MG/DL 0.0-0.30 BILIRUBIN INDIRECT (test code=BILIND) 0.50 MG/DL SGOT/AST (test code=AST) 19 IUnit/L 15-37 SGPT/ALT (test code=ALT) 27 IUnit/L 15-65 ALKALINE PHOSPHATASE TOTAL (test code=ALKP) 75 IUnit/L 20-125 [id number] 11:39:00* Test Item Value Reference Range Comments LIPASE (test code=LIP) 144 IUnit/L 73-393 [id number] 11:39:00* Test Item Value Reference Range Comments MAGNESIUM (test code=MAG) 1.80 mg/dL 1.8-2.4 [id number] 11:39:00* Test Item Value Reference Range Comments TROPONIN-I (test code=TROPI) < 0.015 ng/mL 0.000-0.045 Negative: <=0.045 Positive: >=0.046 Correlation with serial results, other cardiac markers andclinical findings is necessary to determine the clinicalsignificance of this result. Results using different methodologies should not be comparedto one another as quantitative results may vary by method. PROTHROMBIN [id number] 11:36:00* Test Item Value Reference Range Comments PROTHROMBIN TIME PATIENT (test code=PTP) 11.7 SECONDS 9.3-12.9 INTERNATIONAL NORMAL RATIO (test code=INR) 1.1 0.8-1.2 TARGET INR BY INDICATION Indication INR1. Prophylaxis of venous thrombosis 2.0 - 3.0 (orthopedic surgery), Prophylaxis of venous thrombosis (other than high-risk surgery), Treatment of Deep Vein Thrombosis/Pulmonary Embolism, Prevention of systemic embolism - Tissue heart valves, Acute Myocardial Infarction (to prevent systemic embolism), Valvular heart disease, Atrial Fibrillation, Bileaflet mechanical valve in aortic position.2. Mechanical prosthetic valves (high risk), 2.5 - 3.5 Presence of Lupus Anticoagulant or Antiphospholipid Antibodies, Prevention of systemic embolism - Acute Myocardial Infarction (to prevent recurrent infarct). THROMBOPLASTIN TIME [id number] 11:36:00* Test Item Value Reference Range Comments THROMBOPLASTIN TIME PARTIAL (test code=PTT) 31.0 Seconds 25.0-39.5 Therapeutic Range: 61.8-83.8 Sec Effective 03/26/2013 [id number] 11:36:00* Test Item Value Reference Range Comments D-DIMER (test code=DDIMER) 584 ng/mlFEU <=500 THROMBOSIS AND/OR PULMONARY EMBOLISM AND THE CLINICAL CUT- OFF VALUE FOR EXCLUSION (500 ng/mL FEU) OF THESE CONDITIONSIS VALIDATED BY THE MULTI CRAFT MAINTENANCE TECHNICIAN OF THE METHOD. A NEGATIVE D-DIMER RESULT WHEN COMBINED WITH A CLINICALASSESSMENT OF LOW PRETEST PROBABILITY HAS BEEN SHOWN TO HAVEA HIGH NEGATIVE PREDICTIVE VALUE OF DVT OR PE. D-DIMER VALUES >500 ng/mL FEU ARE NOT DIAGNOSTIC FOR DVT, PEor DIC WITHOUT OTHER CONFIRMATORY TESTS AND APPROPRIATECLINICAL EUALUATIONS. DRUGS OF ABUSE SCREEN [id number] 11:32:00* Test Item Value Reference Range Comments URN COCAINE (test code=COCAURN) NEGATIVE NEGATIVE URN CANNABINOIDS (test code=CANNABURN) NEGATIVE NEGATIVE URN AMPHETAMINE (test code=AMPHETURN) NEGATIVE NEGATIVE URN BARBITURATE (test code=BARBITURN) NEGATIVE NEGATIVE URN BENZODIAZEPINE (test code=BENZOURN) NEGATIVE NEGATIVE Cut-off value:200 ng/mL URN OPIATES (test code=OPIATURN) NEGATIVE NEGATIVE Cut-off value:2000 ng/mL URN PHENCYCLIDINE (PCP) (test code=PHENCURN) NEGATIVE NEGATIVE Cutoffs:Barbiturates 200 ng/mLBenzodiazepines 200 ng/mLTHC Cannabinoids 50 ng/mLOpiates(Morphine) 2000 ng/mLAmphetamine 1000 ng/mLCocaine 300 ng/mLPCP phencyclidine 25 ng/mL Unconfirmed screening results shouldnot be used for non-medical purposes. URINALYSIS [id number] 11:23:00* Test Item Value Reference Range Comments UA COLOR (test code=COLU) YELLOW YEL/STRAW UA APPEARANCE (test code=APPU) SL CLOUDY CLEAR UA GLUCOSE DIPSTICK (test code=DGLUU) NEGATIVE NEGATIVE UA BILIRUBIN DIPSTICK (test code=BILU) NEGATIVE NEGATIVE UA KETONE DIPSTICK (test code=KETU) NEGATIVE NEGATIVE UA SPECIFIC GRAVITY (test code=SGU) 1.018 1.005-1.030 UA BLOOD DIPSTICK (test code=LAWRENCE) NEGATIVE NEGATIVE UA PH DIPSTICK (test code=ARIADNE) 5.0 5.0-7.0 UA PROTEIN DIPSTICK (test code=PROU) NEGATIVE NEGATIVE UA UROBILINIOGEN DIPSTICK (test code=URO) 0.2 mg/dL 0.2-1.0 UA NITRITE DIPSTICK (test code=BENNY) NEGATIVE NEGATIVE UA LEUKOCYTE ESTERASE DIPSTICK (test code=LEUU) NEGATIVE NEGATIVE UA WBC (test code=WBCU) 0-3 WBC/HPF 0-3 UA RBC (test code=RBCU) 0-3 RBC/HPF 0-3 UA BACTERIA (test code=BACU) NONE SEEN /HPF NONE SEEN UA SQUAMOUS CELLS (test code=SQU) NONE SEEN /HPF NONE SEEN UA MUCUS (test code=MUCU) TRACE /LPF NONE SEEN COMMENTS: Clean CatchCBC W/AUTO [id number] 11:13:00* Test Item Value Reference Range Comments WHITE BLOOD CELL (test code=WBC) 5.93 x10 3/uL 4.5-11.0 RED BLOOD CELL (test code=RBC) 4.46 x10 6/uL 4.00-5.60 HEMOGLOBIN (test code=HGB) 13.6 g/dL 12.5-16.9 HEMATOCRIT (test code=HCT) 41.4 % 37.5-50.7 MEAN CELL VOLUME (test code=MCV) 92.8 fL 81.0-99.0 MEAN CELL HGB (test code=MCH) 30.5 pg 27.0-33.0 MEAN CELL HGB CONCETRATION (test code=MCHC) 32.9 g/dL 33.0-37.0 RED CELL DISTRIBUTION WIDTH CV (test code=RDW) 14.6 % 11.5-14.5 RED CELL DISTRIBUTION WIDTH SD (test code=RDW-SD) 49.5 fL 37.0-54.0 PLATELET COUNT (test code=PLT) 138 x10 3/uL 150-400 MEAN PLATELET VOLUME (test code=MPV) 10.8 fL 7.0-9.0 NEUTROPHIL % (test code=NT%) 74.0 % 56.0-77.0 IMMATURE GRANULOCYTE % (test code=IG%) 0.2 % 0.0-2.0 LYMPHOCYTE % (test code=LY%) 8.8 % 14.0-32.0 MONOCYTE % (test code=MO%) 10.8 % 4.8-9.0 EOSINOPHIL % (test code=EO%) 5.9 % 0.3-3.7 BASOPHIL % (test code=BA%) 0.3 % 0.0-2.0 NUCLEATED RBC % (test code=NRBC%) 0.0 % 0-0 NEUTROPHIL # (test code=NT#) 4.39 x10 3/uL 2.0-7.6 IMMATURE GRANULOCYTE # (test code=IG#) 0.01 x10 3/uL 0.00-0.03 LYMPHOCYTE # (test code=LY#) 0.52 x10 3/uL 1.0-3.8 MONOCYTE # (test code=MO#) 0.64 x10 3/uL 0.1-0.8 EOSINOPHIL # (test code=EO#) 0.35 x10 3/uL 0.0-0.2 BASOPHIL # (test code=BA#) 0.02 x10 3/uL 0.0-0.2 NUCLEATED RBC # (test code=NRBC#) 0.00 x10 3/uL 0.0-0.1 MANUAL DIFF REQUIRED (test code=MDIFF) NO TROPONIN-I [id number] 10:54:00* Test Item Value Reference Range Comments TROPONIN-I RAPID (test code=TROPIRAP) 0.01 ng/mL 0.00-0.08 Performed by certified shovel loader operator [facility] Global Task Force with joint leadership from the EuropeanSociety of Cardiology (ESC), the [place] [employer] Foundation (ACCF), the [place] Heart Association(AHA) and the World Heart Federation (WHF) refined past criteria of myocardial infarction (MT) with a universal definition of myocardial infarction that supports the use of cTnI as a preferred biomarker for myocardial injury. The universal definition of MT, according to this taskforce, is defined as a typical rise and gradual fall ofcardiac biomarkers (preferably troponin) with at least onevalue above the 99th percentile of the upper reference limit (URL) together with evidence of myocardial ischemia with at least one of the following:* ischemic symptoms,* pathological Q waves on electrocardiogram (ECG),* ischemic ECG changes,* or imaging evidence of new loss of viable myocardium or new regional wall motion abnormality. An elevated troponin value alone is not sufficient todiagnose a myocardial infarction. Rather, the patient sclinical presentation (history, physical exam) and ECGshould be used in conjunction with troponin in thediagnostic evaluation of suspected myocardial infarction. Aserial sampling protocol is recommended to facilitate the identification of temporal changes in troponin levels characteristic of MT. - XR CHEST 1 [id number] 10:53:00 FAX: Migel Avina MD [place]: St: PRE Name: NORIS SILVA [facility] : [birth year] Age/S: 72/M [address] [place] [address] Unit #: [id number] Loc: [place] [address] Phys: Migel Avina MD Acct: [id number] Dis Date: Status: PRE ER PHONE #: [phone] Exam Date: 04/13/2018 1051 FAX #: [phone] Reason: SOB EXAMS: CPT CODE: [id number] XR CHEST 1 V 73444 PROCEDURE: Chest Radiograph. Clinical Indication: Shortness of breath, chest pain since last night. Comparison: Chest radiograph 12/21/2017. FINDINGS: The chest shows normal lung volumes without interstitial or airspace opacities, pleural effusions or pneumothorax. The heart size and pulmonary vasculature are normal. The trachea is midline. There are no clinically significant osseous abnormalities noted. IMPRESSION: 1. No chest radiographic evidence of acute cardiop ulmonary disease. SL: ROYER at 1053 Reported and signed by: Ruslan Cueto M.D. CC: Migel Avina MD Technologist: Cintia Harden RT(R) Trnscrd Date/Time/By: 04/13/2018 (1246) : By: SreekanthO Orig Print D/T: S: 04/13/2018 (3261) PAGE 1 Signed Report CHEMISTRY 8 [id number] 10:47:00* Test Item Value Reference Range Comments ISTAT-SODIUM (test code=NAP) MMOL/L 134-147 ISTAT-POTASSIUM (test code=KP) MMOL/L 3.4-5.0 ISTAT-CHLORIDE (test code=CLP) MMOL/L 100-108 ISTAT CARBON DIOXIDE (test code=ISTAT-CO2) mmol/L 21-33 ISTAT CALCIUM IONIZED (test code=ISTAT-WILBUR) MG/DL 1.12-1.32 ISTAT-GLUCOSE (test code=GLUP) MG/DL 70-110 ISTAT-BUN (test code=BUNP) MG/DL 7-18 BEDSIDE CREATININE (test code=CREATBED) MG/DL 0.6-1.3 GLOMERULAR FILTRATION RATE POC (test code=GFRBED) 101 ML/MIN CHEMISTRY 8 [id number] 10:47:00* Test Item Value Reference Range Comments ISTAT-SODIUM (test code=NAP) 141 MMOL/L 134-147 ISTAT-POTASSIUM (test code=KP) 3.6 MMOL/L 3.4-5.0 ISTAT-CHLORIDE (test code=CLP) 104 MMOL/L 100-108 Performed by certified shovel loader operator at [facility] ISTAT CARBON DIOXIDE (test code=ISTAT-CO2) 24.0 mmol/L 21-33 ISTAT CALCIUM IONIZED (test code=ISTAT-WILBUR) 1.01 MG/DL 1.12-1.32 ISTAT-GLUCOSE (test code=GLUP) 124 MG/DL 70-110 ISTAT-BUN (test code=BUNP) 13 MG/DL 7-18 BEDSIDE CREATININE (test code=CREATBED) 0.8 MG/DL 0.6-1.3 GLOMERULAR FILTRATION RATE POC (test code=GFRBED) 101 ML/MIN
[2018-12-31 08:50] VITALS: BP 143/87
--- NOTE | 2018-12-31 09:00 | Operative Report ---
DATE OF PROCEDURE: 12/31/2018 SURGEON: Mir Hwang MD PREOPERATIVE DIAGNOSIS: Right-sided kidney stone. POSTOPERATIVE DIAGNOSIS: Right-sided kidney stone. PROCEDURE: Staged shock wave lithotripsy, right side. ANESTHESIA: General. ESTIMATED BLOOD LOSS: Minimal. COMPLICATIONS: None. INDICATIONS: Mr. Tapia is a very pleasant 73-year-old male with a history of intermittently symptomatic right-sided kidney stone. He and I had a long discussion about alternatives, risks, and benefits including doing nothing, shock wave lithotripsy, ureteroscopy, percutaneous surgery or open surgery. He voiced understanding of the options, alternatives, risks, and benefits, and elected to proceed. PROCEDURE IN DETAIL: After consent was obtained, the patient was taken to the operative suite, placed in the supine on the operating table, and underwent general anesthesia by Anesthesia Service. Stone was localized in the X, Y and Z planes. Treatment was performed per the treatment report. The patient tolerated the procedure well and was transported to the recovery room in excellent condition and supervised fluoroscopy. The patient was awakened from anesthesia and transferred to recovery room in excellent condition. Of note, there was no family available afterwards in the waiting room. The patient is seen in PACU. MD JOEL Martin/MODL /[id number]
== END | disposition home or self-care (01) ==
LOC: OR 05:00
PROVIDERS: ATTEND Urology
DX: N20.0 Calculus of kidney (principal); N40.1 Benign prostatic hyperplasia with lower urinary tract symptoms; I10 Essential (primary) hypertension; N52.9 Male erectile dysfunction, unspecified; R39.14 Feeling of incomplete bladder emptying; R35.1 Nocturia; E29.1 Testicular hypofunction; R35.0 Frequency of micturition; N39.0 Urinary tract infection, site not specified; M06.9 Rheumatoid arthritis, unspecified; G47.33 Obstructive sleep apnea (adult) (pediatric); I25.10 Atherosclerotic heart disease of native coronary artery without angina pectoris; I45.10 Unspecified right bundle-branch block; I25.2 Old myocardial infarction; Z79.82 Long term (current) use of aspirin; Z79.02 Long term (current) use of antithrombotics/antiplatelets; Z68.30 Body mass index [BMI] 30.0-30.9, adult; Z95.5 Presence of coronary angioplasty implant and graft
CPT/HCPCS: 36415; 50590; 71046; 85025; 93005; J0696; J2001; J2704; J3010

== ENCOUNTER 2019-01-21 10:32 | Observation (INO) | payer MEDICARE, BC ==
[~2019-01-21] VITALS: Ht 175.3 cm; Wt 77.1 kg
[~2019-01-21 10:32] MED LIST changes: -CEFTRIAXONE SOD 1 GM/NS 50 ML 50 ML IV ONE; -EPHEDRINE SULFATE INJ 50 MG/10 ML SYR ONE; -FENTANYL CITRATE/PF 100MCG/2 ML INJ ONE; -LIDOCAINE HCL 2% LOCAL INJ 5 ML SDV VIAL INJ ONE; -PROPOFOL IV EMULSION 10 MG/ML 20 ML VIAL ONE; -SEVOFLURANE INHAL SOLN 250 ML PEN BTL ONE
[2019-01-21] MEDS ORDERED: SODIUM CHLORIDE 0.9% 1000ML 1,000 ML IV STA (11:09)
[2019-01-21 11:37] LABS: BASOPHILS % 0.8 % (0.0-1.0); EOSINOPHILS # (AUTO) 0.2 (0.0-0.4); EOSINOPHILS % 4.8 % (0.0-6.0); HEMATOCRIT 39.1 % (38.2-49.6); HEMOGLOBIN 13.2 g/dL (14.0-18.0); LYMPHOCYTES # (AUTO) 0.5 (1.0-3.2); LYMPHOCYTES % 13.5 % (18.0-39.1); MEAN CORPUSCULAR HEMOGLOBIN 32.2 pg (28-32); MEAN CORPUSCULAR HGB CONC 33.8 g/dL (31-35); MEAN CORPUSCULAR VOLUME 95.4 fL (81-99); MONOCYTES # (AUTO) 0.4 (0.2-0.8); MONOCYTES % 10.9 % (4.4-11.3); NEUTROPHILS # (AUTO) 2.7 (2.1-6.9); NEUTROPHILS % 69.5 % (38.7-80.0); PLATELET COUNT 126 x10e3/uL (140-360); RED CELL DISTRIBUTION WIDTH 13.2 % (11.7-14.4)
[2019-01-21 11:39] LABS: BILIRUBIN,URINE NEGATIVE (NEGATIVE); CLARITY,URINE CLEAR (CLEAR); COLOR,URINE YELLOW (YELLOW); KETONES,URINE NEGATIVE (NEGATIVE); LEUKOCYTE ESTERASE ,URINE NEGATIVE (NEGATIVE); NITRITE,URINE NEGATIVE (NEGATIVE); PROTEIN,URINE DIPSTICK NEGATIVE (NEGATIVE); URINE UROBILINOGEN 0.2 mg/dL (0.2 - 1)
--- NOTE | 2019-01-21 11:44 | Diagnostic Imaging Report ---
EXAMINATION: CHEST SINGLE (PORTABLE) INDICATION: Syncope COMPARISON: Chest radiograph 12/24/2018 FINDINGS: LINES/TUBES:EKG leads overlie the chest. LUNGS:The lungs are moderately inflated. No focal consolidation or pulmonary edema. PLEURA:No pleural effusion or pneumothorax. MEDIASTINUM:The cardiomediastinal silhouette appears unchanged in size and shape. BONES/SOFT TISSUES:No acute osseous injury. ABDOMEN:No free air under the diaphragm. IMPRESSION: No focal pneumonia or pulmonary edema. Signed by: Cinthya Murphy MD on 01/21/2019 11:41 AM
[2019-01-21 11:54] LABS: BACTERIA,URINE MODERATE /HPF; EPITHELIAL CELLS,URINE FEW /LPF; INR 0.92; PARTIAL THROMBOPLASTIN TIME 24.8 seconds (23.8-35.5); PROTHROMBIN TIME 12.9 seconds (11.9-14.5); WBC,URINE (MAN) 21-50 /HPF (0-5)
[2019-01-21 12:02] LABS: ALBUMIN 3.9 g/dL (3.5-5.0); ALBUMIN/GLOBULIN RATIO 1.4 (0.8-2.0); ANION GAP 14.4 mmol/L (8-16); CALCIUM 9.6 mg/dL (8.4-10.2); CREATININE, SERUM 1.34 mg/dL (0.72-1.25); POTASSIUM 4.4 mmol/L (3.5-5.1)
[2019-01-21 12:09] LABS: CREATINE KINASE MB 1.7 ng/mL (0-5.0)
--- NOTE | 2019-01-21 12:39 | Diagnostic Imaging Report ---
CT BRAIN WO HISTORY: Fall COMPARISON: None. Technique: Noncontrast axial scans were obtained from skull base to the vertex. Coronal and sagittal reconstructions obtained from the axial data. One or more of the following dose reduction techniques were used: Automated exposure control, adjustment of the mA and/or kV according to patient size, and/or utilization of iterative reconstruction technique. DISCUSSION: Scalp/Skull: Small left frontal scalp hematoma. No calvarial fracture. Brain sulci: Mildly prominent. Ventricles: Compensatory dilatation. Cavum septum pellucidum et vergae is present, a normal variant. Extra-axial spaces: No masses or fluid collections. Carotid siphon calcifications are present. Parenchyma: Mild bilateral deep white matter hypodensity is likely chronic microvascular ischemic change. Otherwise, no masses, hemorrhage, or large vascular territory acute infarct. Dural sinuses: No abnormal densities. Sellar/Suprasellar region: Intact. Skull base: Intact. Incidental findings: None. IMPRESSION: 1. No acute intracranial abnormalities. 2. Mild supratentorial chronic microvascular ischemic change. Mild generalized cerebral volume loss. Signed by: Dr. David aGn M.D. on 01/21/2019 12:36 PM
--- NOTE | 2019-01-21 12:43 | Diagnostic Imaging Report ---
CT CERVICAL SPINE WO HISTORY: Fall COMPARISON: None. TECHNIQUE: CT of the cervical spine without contrast. Sagittal and coronal reformations were created. One or more of the following dose reduction techniques were used: Automated exposure control, adjustment of the mA and/or kV according to patient size, and/or utilization of iterative reconstruction technique. FINDINGS: Cervical lordosis is straightened. There is no significant scoliosis. No definite acute fracture or compression deformity is seen. The craniocervical junction is intact. No gross spinal canal masses are seen. The paravertebral and paraspinal soft tissues are unremarkable. Degenerative changes: Mild multilevel spondylotic changes are present. Prominent multilevel bilateral facet arthrosis is associated with multilevel minimal spondylolisthesis. 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 IMPRESSION: No acute osseous abnormalities. Degenerative changes as described above. Signed by: Dr. David Gan M.D. on 01/21/2019 12:40 PM
--- NOTE | 2019-01-21 12:50 | Diagnostic Imaging Report ---
CT LUMBAR SPINE WO HISTORY: Fall COMPARISON: None. TECHNIQUE: Axial CT images of the lumbar spine were obtained without contrast. Coronal and sagittal reconstructions obtained from the axial data. One or more of the following dose reduction techniques were used: Automated exposure control, adjustment of the mA and/or kV according to patient size, and/or utilization of iterative reconstruction technique. DISCUSSION: There are 5 nonrib-bearing lumbar vertebral bodies. Lumbar lordosis is preserved. Mild lumbar levoscoliosis is present. No fracture, compression deformity, or destructive osseous lesion is seen. No gross spinal canal mass is seen. The paravertebral and paraspinal soft tissues are unremarkable. Mild to moderate multilevel spondylosis is most prominent at L5-S1. Mild bilateral sacroiliac degenerative changes are present as well. L1-L2: No gross canal or foraminal stenosis. L2-L3: No gross canal or foraminal stenosis. L3-L4: No gross canal or foraminal stenosis. L4-L5: Grade 1 anterolisthesis of L4 on L5 is due to prominent bilateral facet arthrosis. At least mild canal stenosis due to uncovered disc bulge and ligamentum flavum thickening. Mild to moderate right and mild left foraminal stenoses due to uncovered disc bulge and facet arthrosis. L5-S1: Moderate left foraminal stenosis due to disc bulge and facet arthrosis. No gross canal or right foraminal stenosis. Right nephrolithiasis is partially imaged. There is also mild aortoiliac calcified atherosclerosis. IMPRESSION: 1. No acute osseous abnormalities. 2. Mild to moderate multilevel spondylosis, most prominent at L5-S1. 3. Grade 1 anterolisthesis of L4 on L5 due to prominent bilateral L4-L5 facet arthrosis. 4. At least mild degenerative canal stenosis at L4-L5. 5. Degenerative foraminal stenoses - mild to moderate on the right at L4-L5 and moderate on the left at L5-S1. Signed by: Dr. David Gan M.D. on 01/21/2019 12:46 PM
[2019-01-21] MEDS ORDERED: ONDANSETRON HCL INJ 2MG/ML 2ML 2 MG/ML VIAL IV PRN (14:45)
[2019-01-21] MEDS: FAMOTIDINE 20 MG/2 ML VIAL IV SCH (15:00)
[2019-01-21 17:04] VITALS: BP 122/79
[2019-01-21 17:52] VITALS: BP 122/79
[2019-01-21 18:01] VITALS: BP 122/79
[2019-01-21] MEDS: CEFTRIAXONE SOD 1 GM/NS 50 ML 50 ML IV SCH (19:06)
[2019-01-21] MEDS ORDERED: SODIUM CHLORIDE 0.9% 250ML 250 ML ONE (19:10)
[2019-01-21 19:37] VITALS: BP 136/83
[2019-01-21 19:39] LABS: CREATINE KINASE MB 1.9 ng/mL (0-5.0)
[2019-01-21 21:00] VITALS: BP 136/83
[2019-01-21 23:14] VITALS: BP 133/77
[2019-01-22] VITALS (7 sets, daily range): BP systolic 109–135; BP diastolic 73–94
[2019-01-22 00:50] LABS: CREATINE KINASE 66 IU/L (30-200)
[2019-01-22] MEDS: CEFTRIAXONE SOD 1 GM/NS 50 ML 50 ML IV SCH (03:35)
[2019-01-22] MEDS: FAMOTIDINE 20 MG/2 ML VIAL IV SCH (03:35)
[2019-01-22 05:21] LABS: BASOPHILS % 0.5 % (0.0-1.0); EOSINOPHILS # (AUTO) 0.2 (0.0-0.4); EOSINOPHILS % 4.7 % (0.0-6.0); HEMATOCRIT 38.9 % (38.2-49.6); HEMOGLOBIN 12.5 g/dL (14.0-18.0); LYMPHOCYTES # (AUTO) 0.8 (1.0-3.2); LYMPHOCYTES % 19.8 % (18.0-39.1); MEAN CORPUSCULAR HEMOGLOBIN 31.1 pg (28-32); MEAN CORPUSCULAR HGB CONC 32.1 g/dL (31-35); MEAN CORPUSCULAR VOLUME 96.8 fL (81-99); MONOCYTES # (AUTO) 0.6 (0.2-0.8); MONOCYTES % 13.7 % (4.4-11.3); NEUTROPHILS # (AUTO) 2.6 (2.1-6.9); NEUTROPHILS % 61.1 % (38.7-80.0); PLATELET COUNT 112 x10e3/uL (140-360); RED BLOOD COUNT 4.02 x10e6/uL (4.3-5.7); RED CELL DISTRIBUTION WIDTH 13.2 % (11.7-14.4)
[2019-01-22 05:50] LABS: CREATINE KINASE 63 IU/L (30-200)
[2019-01-22 06:12] LABS: ALANINE AMINOTRANSFERASE 19 IU/L (0-55); ALBUMIN 3.5 g/dL (3.5-5.0); ALBUMIN/GLOBULIN RATIO 1.3 (0.8-2.0); ALKALINE PHOSPHATASE 133 IU/L (40-150); BLOOD UREA NITROGEN 27 mg/dL (7-26); BUN/CREATININE RATIO 24 (6-25); CALCIUM 9.2 mg/dL (8.4-10.2); CARBON DIOXIDE 24 mmol/L (22-29); CHLORIDE 105 mmol/L (98-107); CHOL/HDL RATIO 4.3 (3.9-4.7); CHOLESTEROL 168 MD/DL (0-199); CREATININE, SERUM 1.13 mg/dL (0.72-1.25); EST GLOMERULAR FILTRATION RATE > 60 ML/MIN (60-); GLUCOSE 112 mg/dL (74-118); HDL CHOLESTEROL 39 MG/DL (40-60); LDL CHOLESTEROL 95 MG/DL (60-130); SODIUM 138 mmol/L (136-145); TRIGLYCERIDES 172 MG/DL (0-149)
--- NOTE | 2019-01-22 10:15 | NUR ---
ASSESSMENT: Spiritual concern Pt contemplates "history" of heart issues and in light of present hospitalization. Intervention: Provided empathic listening and hospitality. Provided information on how to reach machinery erector, if needed. Outcome: Pt expressed appreciation for visit. CHRIS ADDISON Developmental Services Worker Spiritual Care Department O: [phone] Pager: [phone] ([phone] calling from)
--- NOTE | 2019-01-22 10:17 | NUR ---
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
== END 2019-01-22 17:05 | disposition home or self-care (01) ==
LOC: ER 10:36 → ERHOLD 15:24 → IMCU 17:48
DX: I95.1 Orthostatic hypotension (principal); I10 Essential (primary) hypertension; I25.10 Atherosclerotic heart disease of native coronary artery without angina pectoris
CPT/HCPCS: 36415 ×2; 70450; 71045; 72125; 72131; 80053 ×2; 80061; 81001; 82550 ×2; 82553 ×2; 84484 ×2; 85025 ×2; 85610; 85730; 93005; 99284; G0378 ×2; J0696; J7030; J7050

== ENCOUNTER → 2019-02-07 | Day surgery (SDC) | payer MEDICARE, BC ==
--- NOTE | 2019-01-30 17:10 | Diagnostic Imaging Report ---
Abdomen, one view Clinical indication: Preoperative evaluation for urologic surgery Comparison: None Findings: Multiple calcific densities measuring up to 6 mm project over the upper pole of the right kidney. A 7 mm calcification projects over the lower pole of the left kidney. The bowel gas pattern is nonobstructive There are no acute osseous abnormalities. Impression: Bilateral renal calculi Signed by: Sammy Jean MD on 01/30/2019 5:07 PM
[~2019-02-07] MED LIST changes: +CARVEDILOL12.5 MG PO; +CEFTRIAXONE SOD 1 GM/NS 50 ML 50 ML IV ONE; +DEXAMETHASONE SOD PHOS INJ 4 MG/ML VIAL ONE; +EPHEDRINE SULFATE INJ 50 MG/10 ML SYR ONE; +FENTANYL CITRATE/PF 100MCG/2 ML INJ ONE; +LIDOCAINE HCL 2% LOCAL INJ 5 ML SDV VIAL INJ ONE; +MIDODRINE HCL2.5 MG PO; +ONDANSETRON HCL INJ 2MG/ML 2ML 2 MG/ML VIAL ONE; +PHENYLEPHRINE HCL 1% 10 MG/ML VIAL ONE; +PROPOFOL IV EMULSION 10 MG/ML 20 ML VIAL ONE; +SEVOFLURANE INHAL SOLN 250 ML PEN BTL ONE
[2019-02-07 09:30] VITALS: BP 121/70
--- NOTE | 2019-02-07 17:12 | Operative Report ---
DATE OF PROCEDURE: 02/07/2019 SURGEON: Mir Hwang MD PREOPERATIVE DIAGNOSIS: Left kidney stone. POSTOPERATIVE DIAGNOSIS: Left kidney stone. PROCEDURE PERFORMED: Staged shock wave lithotripsy, left side. ANESTHESIA: General. ESTIMATED BLOOD LOSS: Minimal. COMPLICATIONS: None. INDICATIONS: Mr. Tapia is a very pleasant 73-year-old male with a history of intermittently symptomatic left-sided kidney stone. He and I had a long discussion of alternatives, risks, and benefits of doing nothing, shock wave lithotripsy, ureteroscopy, percutaneous surgery or open surgery. He voiced understanding of the options, alternatives, risks, and benefits, and elected to proceed. PROCEDURE IN DETAIL: After informed consent was obtained, the patient was taken to the operative suite, placed supine on the operative table, underwent general anesthesia by the Anesthesia Service. Stone was localized in the X, Y, and Z planes. Treatment was performed per the treatment report. The patient tolerated the procedure well and was transferred to the recovery room in excellent condition. No untoward effects noted. Supervision of fluoroscopy: I was present for the entire procedure and supervised fluoroscopy. There was no radiologist present. Dosages per treatment report. Mir Hwang MD ES/MODL /[id number]
== END | disposition home or self-care (01) ==
LOC: OR 05:17
PROVIDERS: ATTEND Urology
DX: N20.0 Calculus of kidney (principal); N40.1 Benign prostatic hyperplasia with lower urinary tract symptoms; R35.0 Frequency of micturition; R39.14 Feeling of incomplete bladder emptying; R35.1 Nocturia; N52.9 Male erectile dysfunction, unspecified; E29.1 Testicular hypofunction; N39.0 Urinary tract infection, site not specified; G47.33 Obstructive sleep apnea (adult) (pediatric); K21.9 Gastro-esophageal reflux disease without esophagitis; K58.9 Irritable bowel syndrome, unspecified; I45.10 Unspecified right bundle-branch block; I25.10 Atherosclerotic heart disease of native coronary artery without angina pectoris; J45.909 Unspecified asthma, uncomplicated; I10 Essential (primary) hypertension; Z88.8 Allergy status to other drugs, medicaments and biological substances; Z79.82 Long term (current) use of aspirin; Z79.02 Long term (current) use of antithrombotics/antiplatelets
CPT/HCPCS: 50590; 74018; J0696; J3010; J1100; J2001; J2370; J2405

== ENCOUNTER → 2020-10-08 | Day surgery (SDC) | payer MEDICARE, BC ==
[2020-10-06 09:38] LABS: BASOPHILS % 0.7 % (0.0-1.0); EOSINOPHILS # (AUTO) 0.2 (0.0-0.4); EOSINOPHILS % 5.2 % (0.0-6.0); HEMATOCRIT 38.7 % (38.2-49.6); HEMOGLOBIN 12.5 g/dL (14.0-18.0); LYMPHOCYTES # (AUTO) 0.6 (1.0-3.2); LYMPHOCYTES % 15.8 % (18.0-39.1); MEAN CORPUSCULAR HEMOGLOBIN 31.3 pg (28-32); MEAN CORPUSCULAR HGB CONC 32.3 g/dL (31-35); MEAN CORPUSCULAR VOLUME 96.8 fL (81-99); MONOCYTES # (AUTO) 0.5 (0.2-0.8); MONOCYTES % 12.1 % (4.4-11.3); NEUTROPHILS # (AUTO) 2.7 (2.1-6.9); PLATELET COUNT 105 x10e3/uL (140-360); RED CELL DISTRIBUTION WIDTH 13.4 % (11.7-14.4)
[~2020-10-08] MED LIST changes: +ALIGN4 MG PO; -ASPIRIN81 MG; +ASPIRIN81 MG PO; +CALCIUM CARBON500 MG PO; +CEFTRIAXONE 1 GM VIAL ONE; -CEFTRIAXONE SOD 1 GM/NS 50 ML 50 ML IV ONE; +CENTRUM SILVER1 EAC3 PO; +CRESTOR10 MG PO; -EPHEDRINE SULFATE INJ 50 MG/10 ML SYR ONE; -FENTANYL CITRATE/PF 100MCG/2 ML INJ ONE; +FLOMAX0.4 MG PO; -HUMIRA20 MG/0.4; +HUMIRA20 MG/0.4 IM; +K2 PLUS D3 TAB1 EACH PO; -LEFLUNOMIDE; +LEFLUNOMIDE PO; +LOVENOX60 MG/0.6 SC; -OMEPRAZOLE40 MG; +OMEPRAZOLE40 MG PO; +POVIDONE IODINE 0.05% 0.05 % ML PO ONE; +SODIUM CHLORIDE 0.9% 50ML 50 ML ONE; +TAMSULOSIN
[2020-10-08 11:40] VITALS: BP 116/82
== END | disposition home or self-care (01) ==
LOC: OR 07:17
PROVIDERS: ATTEND Urology
DX: N20.0 Calculus of kidney (principal); N39.0 Urinary tract infection, site not specified; G47.33 Obstructive sleep apnea (adult) (pediatric); I25.10 Atherosclerotic heart disease of native coronary artery without angina pectoris; I25.2 Old myocardial infarction; M06.9 Rheumatoid arthritis, unspecified; I10 Essential (primary) hypertension; E78.5 Hyperlipidemia, unspecified; K21.9 Gastro-esophageal reflux disease without esophagitis; K58.9 Irritable bowel syndrome, unspecified; F41.9 Anxiety disorder, unspecified; Z01.810 Encounter for preprocedural cardiovascular examination; Z91.041 Radiographic dye allergy status; Z01.812 Encounter for preprocedural laboratory examination; Z01.818 Encounter for other preprocedural examination; Z20.822 Contact with and (suspected) exposure to COVID-19; Z79.02 Long term (current) use of antithrombotics/antiplatelets; Z79.82 Long term (current) use of aspirin; Z95.5 Presence of coronary angioplasty implant and graft; Z86.73 Personal history of transient ischemic attack (TIA), and cerebral infarction without residual deficits
CPT/HCPCS: 36415; 50590; 71046; 85025; 93005; J0696; J1100; J2001; J2370; J2405; J2704; U0002

== ENCOUNTER → 2020-10-22 | Day surgery (SDC) | payer MEDICARE, BC ==
[~2020-10-22] MED LIST changes: -DEXAMETHASONE SOD PHOS INJ 4 MG/ML VIAL ONE; -LIDOCAINE HCL 2% LOCAL INJ 5 ML SDV VIAL INJ ONE; -ONDANSETRON HCL INJ 2MG/ML 2ML 2 MG/ML VIAL ONE; -PHENYLEPHRINE HCL 1% 10 MG/ML VIAL ONE; -POVIDONE IODINE 0.05% 0.05 % ML PO ONE; -PROPOFOL IV EMULSION 10 MG/ML 20 ML VIAL ONE; -SEVOFLURANE INHAL SOLN 250 ML PEN BTL ONE
[2020-10-22 08:40] VITALS: BP 129/71
== END | disposition home or self-care (01) ==
LOC: OR 05:39
PROVIDERS: ATTEND Urology
DX: N40.1 Benign prostatic hyperplasia with lower urinary tract symptoms (principal); R39.14 Feeling of incomplete bladder emptying; R35.1 Nocturia; N20.0 Calculus of kidney; I10 Essential (primary) hypertension; N52.9 Male erectile dysfunction, unspecified; E29.1 Testicular hypofunction; R35.0 Frequency of micturition; N39.0 Urinary tract infection, site not specified; R31.29 Other microscopic hematuria; Z87.442 Personal history of urinary calculi; K21.9 Gastro-esophageal reflux disease without esophagitis; G47.33 Obstructive sleep apnea (adult) (pediatric); I25.10 Atherosclerotic heart disease of native coronary artery without angina pectoris; Z01.812 Encounter for preprocedural laboratory examination; Z01.818 Encounter for other preprocedural examination; Z20.822 Contact with and (suspected) exposure to COVID-19
CPT/HCPCS: 50590; 74018; J0696; U0002

== ENCOUNTER 2020-11-22 11:13 | Inpatient (IN) | payer MEDICARE, BC ==
[~2020-11-22] VITALS: Ht 175.3 cm; Wt 93.0 kg
[~2020-11-22 11:13] MED LIST changes: -CEFTRIAXONE 1 GM VIAL ONE; -SODIUM CHLORIDE 0.9% 50ML 50 ML ONE
[2020-11-22 11:51] LABS: BASOPHILS % 0.3 % (0.0-1.0); EOSINOPHILS # (AUTO) 0.1 (0.0-0.4); EOSINOPHILS % 2.2 % (0.0-6.0); HEMATOCRIT 39.8 % (38.2-49.6); HEMOGLOBIN 13.2 g/dL (14.0-18.0); LYMPHOCYTES # (AUTO) 0.7 (1.0-3.2); LYMPHOCYTES % 19.4 % (18.0-39.1); MEAN CORPUSCULAR HEMOGLOBIN 31.7 pg (28-32); MEAN CORPUSCULAR HGB CONC 33.2 g/dL (31-35); MEAN CORPUSCULAR VOLUME 95.4 fL (81-99); MONOCYTES # (AUTO) 0.7 (0.2-0.8); MONOCYTES % 18.3 % (4.4-11.3); NEUTROPHILS # (AUTO) 2.1 (2.1-6.9); NEUTROPHILS % 59.8 % (38.7-80.0); PLATELET COUNT 159 x10e3/uL (140-360); RED BLOOD COUNT 4.17 x10e6/uL (4.3-5.7); RED CELL DISTRIBUTION WIDTH 13.7 % (11.7-14.4)
[2020-11-22 12:09] LABS: ALBUMIN 3.4 g/dL (3.5-5.0); ALBUMIN/GLOBULIN RATIO 1.2 (0.8-2.0); ANION GAP 13.7 mmol/L (8-16); CALCIUM 8.8 mg/dL (8.4-10.2); CREATININE, SERUM 1.06 mg/dL (0.72-1.25); POTASSIUM 3.7 mmol/L (3.5-5.1)
[2020-11-22] MEDS ORDERED: IOPAMIDOL 370 MG/ML 200 ML INFUS..BTL INJ ONE (12:37)
[2020-11-22] MEDS ORDERED: SODIUM CHLORIDE 0.9% 50ML 50 ML ONE (12:37)
[2020-11-22 12:57] LABS: CLARITY,URINE CLEAR (CLEAR); COLOR,URINE YELLOW (YELLOW); KETONES,URINE NEGATIVE (NEGATIVE); LEUKOCYTE ESTERASE ,URINE NEGATIVE (NEGATIVE); NITRITE,URINE NEGATIVE (NEGATIVE); PROTEIN,URINE DIPSTICK TRACE (NEGATIVE); URINE UROBILINOGEN 0.2 mg/dL (0.2 - 1)
[2020-11-22 13:14] LABS: BACTERIA,URINE FEW /HPF; MUCUS,URINE FEW (RARE)
[2020-11-22] MEDS ORDERED: LEVOFLOXACIN 750MG/D5W 150ML 150 ML IV STA (13:58)
[2020-11-22] MEDS ORDERED: CEFTRIAXONE 1 GM in SODIUM CHLORIDE 0.9% 50ML 50 ML IV ONE (14:15)
[2020-11-22] MEDS ORDERED: ACETAMINOPHEN 325 MG TAB PO PRN (16:00)
[2020-11-22 16:20] VITALS: BP 125/79
[2020-11-22] MEDS: TAMSULOSIN HCL 0.4 MG CAP PO SCH (16:26)
[2020-11-22 16:39] VITALS: BP 125/79
[2020-11-22 16:54] VITALS: BP 125/79
[2020-11-22 20:00] VITALS: BP 119/72
[2020-11-22 20:08] VITALS: BP 125/79
[2020-11-22] MEDS: CRESTOR 10MG PO SCH (20:12)
[2020-11-22] MEDS: NEBIVOLOL 10 MG TAB PO SCH (20:12)
[2020-11-22] MEDS ORDERED: ZOLPIDEM TARTRATE 5 MG TAB PO PRN (21:00)
[2020-11-22 23:47] VITALS: BP 117/93
[2020-11-23] VITALS (8 sets, daily range): BP systolic 105–126; BP diastolic 75–85
[2020-11-23] MEDS ORDERED: BISACODYL 5 MG TAB EC PO ONE ×2 (01:15→02:30)
[2020-11-23] MEDS ORDERED: CITRATE OF MAGNESIA 300ML BOTTLE PO ONE ×2 (05:00→07:00)
[2020-11-23 05:25] LABS: BASOPHILS % 0.6 % (0.0-1.0); EOSINOPHILS # (AUTO) 0.1 (0.0-0.4); EOSINOPHILS % 3.6 % (0.0-6.0); HEMATOCRIT 36.8 % (38.2-49.6); HEMOGLOBIN 11.7 g/dL (14.0-18.0); LYMPHOCYTES # (AUTO) 0.7 (1.0-3.2); MEAN CORPUSCULAR HEMOGLOBIN 30.5 pg (28-32); MEAN CORPUSCULAR HGB CONC 31.8 g/dL (31-35); MEAN CORPUSCULAR VOLUME 96.1 fL (81-99); MONOCYTES # (AUTO) 0.9 (0.2-0.8); MONOCYTES % 25.9 % (4.4-11.3); NEUTROPHILS # (AUTO) 1.6 (2.1-6.9); NEUTROPHILS % 47.6 % (38.7-80.0); PLATELET COUNT 129 x10e3/uL (140-360); RED BLOOD COUNT 3.83 x10e6/uL (4.3-5.7); RED CELL DISTRIBUTION WIDTH 13.5 % (11.7-14.4)
[2020-11-23 05:54] LABS: ALBUMIN 3.1 g/dL (3.5-5.0); ALBUMIN/GLOBULIN RATIO 1.1 (0.8-2.0); ANION GAP 12.5 mmol/L (8-16); CALCIUM 8.7 mg/dL (8.4-10.2); CREATININE, SERUM 1.12 mg/dL (0.72-1.25); POTASSIUM 3.5 mmol/L (3.5-5.1)
[2020-11-23 18:12] LABS: WBC,FECAL (FECAL LACTOFERRIN) POSITIVE (NEGATIVE)
[2020-11-23] MEDS: LOSARTAN POTASSIUM 100 MG TAB PO SCH (18:17)
[2020-11-23] MEDS: TAMSULOSIN HCL 0.4 MG CAP PO SCH (18:17)
[2020-11-23] MEDS ORDERED: SIMVASTATIN 20 MG TAB PO SCH (21:00)
[2020-11-23] MEDS: CRESTOR 10MG PO SCH (21:00)
[2020-11-23] MEDS: NEBIVOLOL 10 MG TAB PO SCH (21:00)
[2020-11-24] VITALS (8 sets, daily range): BP systolic 98–122; BP diastolic 60–81
[2020-11-24 08:06] LABS: C DIFFICILE TOXIN A&B AMP PROB **POSITIVE** (NEGATIVE)
[2020-11-24] MEDS: LOSARTAN POTASSIUM 100 MG TAB PO SCH (09:06)
[2020-11-24] MEDS: VANCOMYCIN HCL 125 MG CAPSULE PO SCH ×3 (12:58→23:20)
[2020-11-24] MEDS: METRONIDAZOLE 500MG/NS 100ML 100 ML IV SCH ×2 (13:04→21:07)
[2020-11-24] MEDS ORDERED: SODIUM CHLORIDE 0.9% 50ML 50 ML ONE (13:13)
[2020-11-24] MEDS: TAMSULOSIN HCL 0.4 MG CAP PO SCH (16:55)
[2020-11-24] MEDS: CRESTOR 10MG PO SCH (20:23)
[2020-11-24] MEDS: NEBIVOLOL 10 MG TAB PO SCH (20:23)
[2020-11-25] VITALS: BP 110/69
[2020-11-25 04:00] VITALS: BP 120/72
[2020-11-25] MEDS: VANCOMYCIN HCL 125 MG CAPSULE PO SCH (05:21)
[2020-11-25] MEDS: METRONIDAZOLE 500MG/NS 100ML 100 ML IV SCH (05:21)
[2020-11-25 07:35] VITALS: BP 111/73
[2020-11-25] MEDS ORDERED: VANCOCIN HCL250 MG PO (07:42)
[2020-11-25] MEDS ORDERED: FLAGYL500 MG PO (07:42)
[2020-11-25] MEDS ORDERED: PANTOPRAZOLE SO40 MG PO (07:46)
[2020-11-25 08:23] LABS: BASOPHILS % 1.1 % (0.0-1.0); EOSINOPHILS # (AUTO) 0.1 (0.0-0.4); EOSINOPHILS % 2.3 % (0.0-6.0); HEMATOCRIT 37.2 % (38.2-49.6); HEMOGLOBIN 11.9 g/dL (14.0-18.0); LYMPHOCYTES # (AUTO) 0.6 (1.0-3.2); LYMPHOCYTES % 18.1 % (18.0-39.1); MEAN CORPUSCULAR HEMOGLOBIN 30.9 pg (28-32); MEAN CORPUSCULAR VOLUME 96.6 fL (81-99); MONOCYTES # (AUTO) 0.5 (0.2-0.8); MONOCYTES % 15.2 % (4.4-11.3); NEUTROPHILS # (AUTO) 2.2 (2.1-6.9); PLATELET COUNT 149 x10e3/uL (140-360); RED BLOOD COUNT 3.85 x10e6/uL (4.3-5.7); RED CELL DISTRIBUTION WIDTH 13.7 % (11.7-14.4)
[2020-11-25 08:44] LABS: CALCIUM 8.9 mg/dL (8.4-10.2); CREATININE, SERUM 1.16 mg/dL (0.72-1.25)
== END 2020-11-25 08:46 | disposition home or self-care (01) | DRG 372 ==
LOC: ER 11:21 → ERHOLD 14:23 → MED/SURG3 16:13
PROVIDERS: ADMIT Internal Medicine; ATTEND Internal Medicine
PROC: 0DBP8ZX Excision of Rectum, Via Natural or Artificial Opening Endoscopic, Diagnostic (ICD-10-PCS; principal; 2020-11-22)
DX: A04.72 Enterocolitis due to Clostridium difficile, not specified as recurrent (principal); K92.2 Gastrointestinal hemorrhage, unspecified; N13.30 Unspecified hydronephrosis; N13.2 Hydronephrosis with renal and ureteral calculous obstruction; K62.89 Other specified diseases of anus and rectum; K64.9 Unspecified hemorrhoids; I10 Essential (primary) hypertension; E87.5 Hyperkalemia; I25.10 Atherosclerotic heart disease of native coronary artery without angina pectoris; M06.9 Rheumatoid arthritis, unspecified; N23 Unspecified renal colic; Z95.5 Presence of coronary angioplasty implant and graft; R91.1 Solitary pulmonary nodule; K64.8 Other hemorrhoids; N40.0 Benign prostatic hyperplasia without lower urinary tract symptoms; K80.80 Other cholelithiasis without obstruction
CPT/HCPCS: 36415; 45378; 71046; 74177; 80048; 80053; 81001; 83630; 83690; 83993; 85025; 87045; 87086; 87177; 87328; 87493; 88305; 93005; 93306; 99284; J0696; Q9967; U0002

== ENCOUNTER → 2021-02-21 | Outpatient (CLI) | payer MEDICARE, BC ==
[~2021-02-21] MED LIST changes: +FLAGYL500 MG PO; +PANTOPRAZOLE SO40 MG PO; +VANCOCIN HCL250 MG PO
== END ==
LOC: US 09:13
PROVIDERS: ATTEND Internal Medicine Gastroenterology
DX: R19.5 Other fecal abnormalities (principal); K62.89 Other specified diseases of anus and rectum
CPT/HCPCS: 76700

== ENCOUNTER → 2021-12-09 | Day surgery (SDC) | payer MEDICARE, BC ==
[2021-12-07 10:18] LABS: BASOPHILS % 0.9 % (0.0-1.0); EOSINOPHILS # (AUTO) 0.2 (0.0-0.4); EOSINOPHILS % 5.4 % (0.0-6.0); HEMATOCRIT 39.7 % (38.2-49.6); HEMOGLOBIN 13.2 g/dL (14.0-18.0); LYMPHOCYTES # (AUTO) 0.8 (1.0-3.2); LYMPHOCYTES % 17.4 % (18.0-39.1); MEAN CORPUSCULAR HEMOGLOBIN 31.4 pg (28-32); MEAN CORPUSCULAR HGB CONC 33.2 g/dL (31-35); MEAN CORPUSCULAR VOLUME 94.5 fL (81-99); MONOCYTES # (AUTO) 0.5 (0.2-0.8); MONOCYTES % 11.3 % (4.4-11.3); NEUTROPHILS # (AUTO) 2.9 (2.1-6.9); NEUTROPHILS % 64.5 % (38.7-80.0); PLATELET COUNT 134 x10e3/uL (140-360); RED CELL DISTRIBUTION WIDTH 13.6 % (11.7-14.4)
[~2021-12-09] MED LIST changes: +CEFTRIAXONE 1 GM VIAL ONE; +K2 PO
[2021-12-09 08:30] VITALS: BP 115/83
== END | disposition home or self-care (01) ==
LOC: OR 05:27
PROVIDERS: ATTEND Urology
DX: N20.0 Calculus of kidney (principal); G47.33 Obstructive sleep apnea (adult) (pediatric); I10 Essential (primary) hypertension; E78.5 Hyperlipidemia, unspecified; Z88.8 Allergy status to other drugs, medicaments and biological substances; Z01.810 Encounter for preprocedural cardiovascular examination; Z01.812 Encounter for preprocedural laboratory examination; Z01.818 Encounter for other preprocedural examination; Z79.82 Long term (current) use of aspirin; Z79.899 Other long term (current) drug therapy; Z86.73 Personal history of transient ischemic attack (TIA), and cerebral infarction without residual deficits
CPT/HCPCS: 36415; 50590; 71046; 85025; 93005; J0696

== ENCOUNTER → 2021-12-30 | Day surgery (SDC) | payer MEDICARE, BC ==
[~2021-12-30] MED LIST changes: +EPHEDRINE SULFATE INJ 50 MG/ML VIAL ONE; +LIDOCAINE HCL 2% LOCAL INJ 5 ML SDV VIAL INJ ONE; +ONDANSETRON HCL INJ 2MG/ML 2ML 2 MG/ML VIAL ONE; +POVIDONE IODINE 0.05% 0.05 % ML PO ONE; +PROPOFOL IV EMULSION 10 MG/ML 20 ML VIAL ONE; +SEVOFLURANE INHAL SOLN 250 ML PEN BTL ONE
[2021-12-30 08:30] VITALS: BP 124/78
== END | disposition home or self-care (01) ==
LOC: OR 05:29
PROVIDERS: ATTEND Urology
DX: N20.0 Calculus of kidney (principal); G47.33 Obstructive sleep apnea (adult) (pediatric); I10 Essential (primary) hypertension; E78.5 Hyperlipidemia, unspecified; Z88.8 Allergy status to other drugs, medicaments and biological substances; Z79.82 Long term (current) use of aspirin; Z79.899 Other long term (current) drug therapy; Z86.73 Personal history of transient ischemic attack (TIA), and cerebral infarction without residual deficits
CPT/HCPCS: 50590; 74018; J0696; J2001; J2405; J2704